=== PATIENT | female | born 1950 | race Caucasian/White ===

== ENCOUNTER → 2018-05-02 | Outpatient (REF) | payer OTHER | LOC: M LAB REF 17:23 | PROVIDERS: ATTEND Internal Medicine Pulmonary Disease | DX: J44.9 Chronic obstructive pulmonary disease, unspecified (principal); R91.8 Other nonspecific abnormal finding of lung field ==

== ENCOUNTER → 2019-05-03 | Outpatient (CLI) | payer OTHER ==
--- NOTE | 2019-05-03 13:30 | REP ---
CT chest without contrast: Low-dose screening exam. History: Nicotine dependence. There are multiple comparison chest CT studies, the most recent of which is from 24 February 2014. The most remote is [address] findings: There are multiple tiny fibrotic appearing nodular opacities in the upper lobes bilaterally which are unchanged from the February 24, 2014 prior study. There is emphysematous change in the upper lobes. There are scattered areas of bronchiectasis. There is some peribronchial wall thickening in a portion of the left upper lobe consistent with bronchitis. Some linear fibrosis is seen in the right lower lobe. There is a somewhat linear area of pleural thickening in the right posterior pleural space at the right lower lobe. This is visible on page 59 through 63 of 99 in series 201 of today's study. This appears to be a new finding. This may be a developing pleural plaque. It measures 3.6 mm in greatest thickness by 8 mm in greatest right to left dimension. There is no new pulmonary parenchymal nodule is appreciated. Impression: Evidence of COPD. Multiple stable tiny fibrotic appearing nodular opacities in the upper lobes. There is evidence of bronchiectasis and bronchitis changes are seen. A linear area of pleural thickening is noted in the right lower lobe which is new from the prior study. Repeat CT study suggested in 6 months. Lung-RADS category 3 findings. Electronically Signed by Edin Lewis MD 05/03/2019 06:42 P
== END ==
LOC: M RAD 09:35
PROVIDERS: ATTEND Internal Medicine Pulmonary Disease
DX: J84.9 Interstitial pulmonary disease, unspecified (principal); R91.8 Other nonspecific abnormal finding of lung field; F17.218 Nicotine dependence, cigarettes, with other nicotine-induced disorders

== ENCOUNTER → 2019-05-07 | Outpatient (REF) | payer OTHER | LOC: M LAB REF 13:49 | PROVIDERS: ATTEND Internal Medicine Pulmonary Disease | DX: J44.9 Chronic obstructive pulmonary disease, unspecified (principal) ==

== ENCOUNTER → 2019-10-28 | Outpatient (CLI) | payer OTHER ==
--- NOTE | 2019-11-26 11:29 | REP ---
NONCONTRAST CHEST CT CLINICAL: Chronic obstructive pulmonary disease for follow up of abnormal findings. TECHNIQUE: Axial noncontrast images from the thoracic inlet to the upper abdomen with coronal and sagittal reformations. COMPARISON: 05/03/2019, 02/24/2014 FINDINGS: Moderate/advanced COPD and emphysematous changes are again noted including bronchiectasis, minimal scattered scarring, and small scattered chronic fibronodular changes which remain stable. No acute consolidation or effusion. No significant nodule or mass lesion. Tracheobronchial tree is relatively patent. Mediastinum demonstrates atherosclerotic changes to the thoracic aorta and coronary arteries. Aneurysmal dilatation to the ascending aorta measuring approximately 3.7 cm is unchanged. Reactive mediastinal lymph nodes remain stable. Musculoskeletal structures without focal osseous abnormality. IMPRESSION: * Moderate/early advanced COPD/emphysematous changes with chronic stable changes. * No acute mediastinal or pleuroparenchymal process. The previously noted small scattered fibronodular changes remain stable. No significant nodular mass or consolidation. * Aneurysmal dilatation to the ascending thoracic aorta unchanged. MTDD
== END ==
LOC: M RAD 09:14
PROVIDERS: ATTEND Internal Medicine Pulmonary Disease
DX: J44.9 Chronic obstructive pulmonary disease, unspecified (principal); I71.2 Thoracic aortic aneurysm, without rupture

== ENCOUNTER → 2019-11-13 | Outpatient (CLI) | payer OTHER ==
--- NOTE | 2019-11-15 07:13 | SLEEPCENT ---
DATE: 11/13/2019 REFERRING PROVIDER: Carrington Rivera There was 7 hours and 33 minutes of data reviewed. There were 320 minutes of sleep identified. Sleep latency was prolonged at 72 minutes. REM latency was normal at 121 minutes. Sleep architecture was fair. There was some minor fragmentation. Overall sleep efficiency was good at 71.4%, and there were three REM cycles noted. The electrocardiogram showed a sinus rhythm with occasional premature ventricular contractions (PVCs). Average heart rate 72 beats per minute . EEG showed reasonably normal waveforms for wake and sleep. There were only 12 respiratory events of 10 seconds in duration or greater for an apnea- hypopnea index within normal limits at 2.3. The events that were seen were primarily hypopneic. Snoring was noted, and respiratory related arousals in total occurred 1.2 times per hour. There was some limb activity noted. Two trains of 30 events were documented. The limb movement arousal index was 6.4. Oxygen saturations remained above 90% for much of the study. There were occasional desaturations, which on closer inspection were felt to be artifactual. IMPRESSION: Normal nocturnal polysomnography with snoring. Edited: les 11/18/2019 1407 MTDD
== END ==
LOC: M SLEEP 20:00
PROVIDERS: ATTEND Internal Medicine Pulmonary Disease
DX: R06.83 Snoring (principal)

== ENCOUNTER 2020-05-22 07:01 | Inpatient (IN) | payer MEDICARE, OTHER ==
[~2020-05-22] VITALS: Ht 149.9 cm; Wt 45.0 kg
[2020-05-22] MEDS ORDERED: STIO1AER INH (07:17)
[2020-05-22] MEDS ORDERED: LOSA25TA14 PO (07:17)
[2020-05-22] MEDS ORDERED: methylPREDNISolone 125MG 2ML VIAL IV ONE (07:25)
[2020-05-22 07:32] LABS: VENOUS BASE EXCESS -2.1 (-2.0-2.0); VENOUS HCO3 23.5 MEQ/L (23.0-27.0); VENOUS O2 SATURATION 87.2 % (60.0-80.0); VENOUS PARTIAL PRESSURE CO2 43.3 mmHg (38.0-50.0); VENOUS PARTIAL PRESSURE O2 52.4 mmHg (30.0-50.0); VENOUS PH 7.353 UNITS (7.330-7.430); VENOUS STANDARD HCO3 22.5 MEQ/L; VENOUS TOTAL CO2 24.9 MEQ/L (24.0-28.0)
[2020-05-22 07:39] LABS: BASO # 0.2 10^3/uL (0.0-0.2); EOS % 8.2 % (0.0-3.0); HEMOGLOBIN 14.6 g/dl (12.0-15.5); LYMPH # 4.6 10^3/uL (1.5-5.0); LYMPH % 39.6 % (24.0-44.0); MEAN CORPUSCULAR HEMOGLOBIN 31.8 pg (27.0-33.0); MEAN CORPUSCULAR HGB CONC 32.4 g/dl (32.0-36.5); MONO # 1.2 10^3/uL (0.0-0.8); NEUTROPHILS # 4.7 10^3/uL (1.5-8.5); NEUTROPHILS % 39.9 % (36.0-66.0); PLATELET COUNT, AUTOMATED 352 10^3/uL (150-450); RED BLOOD COUNT 4.59 10^6/uL (4.00-5.40); WHITE BLOOD COUNT 11.6 10^3/uL (4.0-10.0)
[2020-05-22] MEDS: COMBIVENT RESPIMAT 100-20MCG INHALER 4GM INH SCH ×3 (07:48→08:45)
--- NOTE | 2020-05-22 07:54 | REP ---
INDICATION: DYSPNEA/COUGH. COMPARISON: No comparison chest x-ray. Comparison chest CT study October 28, 2019. TECHNIQUE: Portable upright AP chest radiograph. FINDINGS: The lungs are hyperinflated consistent with COPD. Interstitial markings are slightly prominent. There is a moderate dextroconvex lower thoracic curvature unchanged. EKG monitoring electrodes and oxygen delivery tubing are seen. Heart size is normal and unchanged. No focal infiltrate is seen. There is mild diffuse osteopenia.. IMPRESSION: Hyperinflation consistent with COPD unchanged. No acute infiltrate.. <Electronically signed by Jared Lewis > 05/22/20 [id number]
[2020-05-22 07:58] LABS: ALBUMIN 3.6 GM/DL (3.2-5.2); ALT/SGPT 15 U/L (12-78); BILIRUBIN,DIRECT 0.1 MG/DL (0.0-0.2); BILIRUBIN,TOTAL 0.4 MG/DL (0.2-1.0); BLOOD UREA NITROGEN 15 MG/DL (7-18); CARBON DIOXIDE LEVEL 25 MEQ/L (21-32); CHLORIDE LEVEL 112 MEQ/L (98-107); CREATININE FOR GFR 0.71 MG/DL (0.55-1.30); GLOMERULAR FILTRATION RATE > 60.0 (>39); GLUCOSE, FASTING 91 MG/DL (70-100); NT-PRO BNP 57 PG/ML (<125); POTASSIUM SERUM 4.3 MEQ/L (3.5-5.1); SODIUM LEVEL 144 MEQ/L (136-145); TOTAL PROTEIN 7.3 GM/DL (6.4-8.2)
[2020-05-22] MEDS ORDERED: ISOVUE-370 76% 100ML VIAL As Ordered ONE (09:08)
[2020-05-22] MEDS ORDERED: IBUP200T45 PO (10:01)
[2020-05-22] MEDS ORDERED: ACET-683 PO (10:01)
--- NOTE | 2020-05-22 10:11 | REP ---
INDICATION: CP/sob. COMPARISON: 10/28/2019. TECHNIQUE: CT angiogram chest performed following the intravenous administration of 100 cc of Isovue 370. Sagittal and coronal reconstruction images are performed. FINDINGS: Lungs: Clear, no infiltrate or nodule. There is scattered diffuse fibrotic changes bilaterally. Mediastinum: No adenopathy. Pulmonary arteries: No evidence of pulmonary embolism. Terra: No adenopathy. Axilla: No adenopathy. Pleura: No effusion. Heart: Not enlarged. Thoracic aorta: No aneurysm or dissection. Upper abdominal structures: There is a 2.4 cm cyst of the left kidney. Visualized osseous structures: There are degenerative changes of the spine without compression deformity. IMPRESSION: No CT evidence of pulmonary embolism. No infiltrate seen. <Electronically signed by Mariusz Wells > 05/22/20 1004
[2020-05-22] MEDS ORDERED: ALBUTEROL SULFATE 2.5 MG/0.5 ML INH NEB SOLN NEB PRN (10:30)
[2020-05-22] MEDS ORDERED: NICOTINE 14 MG/24 HR TRANSDERMAL TD ONE (10:30)
--- NOTE | 2020-05-22 11:32 | HPEPDOC ---
[facility] Medical History & Physical Date of Admission May 22, 2020 Date of Service: May 22, 2020 Attending Physician: Ruth England MD History and Physical CHIEF COMPLAINT: increased SOB HISTORY OF PRESENT ILLNESS: Patient is a 70-year-old female with past medical history of COPD, hypertension, history of heart murmur, questionable aneurysm (location not known to patient] disease, tobacco use who presented to [facility] emergency room today with a chief complaint of increased shortness of breath. The patient states she always has baseline shortness of breath with activity; however, over the past several days she's noticed increased rest of breath more with activity, increased wheezing, anterior chest heaviness associated with shortness of breath and worsening nonproductive cough. She does not use home oxygen. She denies fevers, nausea, vomiting, diarrhea, chills, recent illnesses, recent hospitalizations, recent medication changes, productive cough. The patient follows with Dr. Galeana as outpatient with pulmonary. She admits to continuing to smoke 1 pack daily she has for 40 years. Ambulance was called to her home and in route to the emergency room she received several DuoNeb treatments along with steroids. Oxygen saturation at rest in the emergency room was 86% after multiple additional treatments. With 2 L nasal cannula this improved to 9092 percent. In the ER vital signs were stable. WBC 11.6, VBG pH 7.35, chest x-ray negative, CTA of the chest negative, troponin negative, Covid and respiratory panel negative, ECG showed normal sinus rhythm. On exam the patient has decreased breath sounds bilaterally and some mild expiratory wheezing despite treatment. The patient was admitted for further treatment for acute COPD exacerbation. REVIEW OF SYSTEMS: Neg except mentioned above PAST MEDICAL HISTORY: COPD, hypertension, history of heart murmur, questionable aneurysm (location not known to patient] disease, tobacco use PAST SURGICAL HISTORY: Tonsillectomy partial hysterectomy FAMILY HISTORY: Father: alcohol abuse, at unknown age very young Mother: HTN, dementia. at 90 y/o Sister, brother #1, brother #2: alzheimer's disease. . SOCIAL HISTORY: Smoker 1 PPD for 40 years. Denies alcohol or drug use. Lives alone locally, unemployed. 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 HOME MEDICATIONS: Please see below. PHYSICAL EXAMINATION: VS: Please see below, stable CONSTITUTIONAL: No acute distress, resting comfortably, AAO x 3 EYES: PERRLA, EOM intact HENT, MOUTH: Normocephalic, atraumatic, moist mucous membranes, NC in place NECK: SUPPLE, no JVD, no lymphadenopathy, no carotid bruit CV: Regular rate and rhythm, S1S2 normal, no murmurs/rubs/gallops CHEST: Pectus excavatum RESPIRATORY: mild exp wheezing, decreased breath sounds bilaterally , no rales/rhonchi GI: BS positive in 4 quadrants, soft, nontender, nondistended, no rebound or guarding, no organomegaly : Deferred MUSCULOSKELETAL: Normal ROM. No cyanosis, clubbing, swelling, joint deformity, extremity edema INTEGUMENTARY: Intact, no rashes, no lesions, no erythema NEUROLOGIC: Cranial Nerves II-XII are intact, no focal deficits PSYCHIATRIC: Mood and affect are normal LABORATORY DATA: Please see below IMAGING: CXR: Hyperinflation consistent with COPD unchanged. No acute infiltrate. CTA chest: No CT evidence of pulmonary embolism. No infiltrate seen. ASSESSMENT: 70-year-old female with past medical history of COPD, hypertension, history of heart murmur, questionable aneurysm (location not known to patient] disease, tobacco use admitted for further treatment for acute COPD exacerbation. PLAN: Acute COPD exacerbation -Currently saturating well on 2 L NC, hypoxic in mid-80's at rest on RA -VBG pH: wnl -C/w methylprednisolone Q8H, duoneb ATC, albuterol PRN, activity as tolerated -Will watch O2 sat with activity in particular to see if dropping off and on O2. -Does not use home O2 normally HTN -Resume home losartan Tobacco use -Nicotine patch ? aneurysm of chest (patient does not know exact location) -Follows with Dr. Lorenz o/p DVT px -Lovenox DISPOSITION: F/u status daily. Plan is eventually home at discharge when medically improved. Vital Signs Vital Signs Date Time Temp Pulse Resp B/P (MAP) Pulse Ox O2 Delivery O2 Flow Rate FiO2 05/22/20 09:22 163/77 (105) Room Air 05/22/20 09:16 97 90 05/22/20 08:46 2.0 05/22/20 07:07 24 Laboratory Data Labs 24H Laboratory Tests 2 05/22/20 07:22: Immature Granulocyte % (Auto) 0.3, Neutrophils (%) (Auto) 39.9, Lymphocytes (%) (Auto) 39.6, Monocytes (%) (Auto) 10.0H, Eosinophils (%) (Auto) 8.2H, Basophils (%) (Auto) 2.0H, Neutrophils # (Auto) 4.7, Lymphocytes # (Auto) 4.6, Monocytes # (Auto) 1.2H, Eosinophils # (Auto) 1.0H, Basophils # (Auto) 0.2, Nucleated Red Blood Cells % (auto) 0.0, Blood Gas Bicarbonate Standard 22.5, Venous Blood pH 7.353, Venous Blood Partial Pressure CO2 43.3, Venous Blood Partial Pressure O2 52.4H, Venous Blood Total Carbon Dioxide 24.9, Venous Blood HCO3 23.5, Venous Blood Oxygen Saturation 87.2H, Venous Blood Base Excess -2.1L, Anion Gap 7L, Glomerular Filtration Rate > 60.0, Lactic Acid Level 1.0, Calcium Level 9.0, Total Bilirubin 0.4, Direct Bilirubin 0.1, Aspartate Amino Transf (AST/SGOT) 8, Alanine Aminotransferase (ALT/SGPT) 15, Alkaline Phosphatase 65, KR-Qmn-U-Type Natriuretic Peptide 57, Total Protein 7.3, Albumin 3.6, Albumin/Globulin Ratio 1.0L 05/22/20 07:35: POC Troponin I (Misc) 0.00 CBC/BMP Laboratory Tests 05/22/20 07:22 Microbiology Microbiology 05/22/20 Respiratory Virus Panel (PCR) (ANA) - Final, Complete 05/22/20 Blood Culture, Received Pending 05/22/20 Blood Culture, Received Pending Home Medications Scheduled Losartan Potassium (Losartan Potassium) 25 Mg Tablet, 25 MG PO DAILY Tiotropium Br/Olodaterol HCl (Stiolto Respimat Inhal [place]) 4 Gm Mist.inhal, 2 PUFF INH DAILY Scheduled PRN Acetaminophen (Acetaminophen) 500 Mg Tablet, 1,000 MG PO Q6H PRN for BACK PAIN Ibuprofen (Ibu-200) 200 Mg Tablet, 800 MG PO Q6H PRN for BACK PAIN Allergies Coded Allergies: No Known Drug Allergies (Verified Allergy, Unknown, 05/22/20) A-FIB/CHADSVASC A-FIB History Current/History of A-Fib/PAF?: No Current PO Anticoag Therapy: No Age/Risk Factor Scoring CHADSVASC: CHADSVASC Response (Comments) Value Age Risk Factor Age 65-74 years old 1 Gender Risk Factor Female 1 Hx of CHF No 0 Hx of HTN Yes 1 Hx of Stroke/TIA/or VTE No 0 Hx of Diabetes No 0 Hx of Vascular Disease No 0 Total 3 Treatment Treatment ordered: Other Other anticoagulant ordered: enoxaparin Ruth England MD May 22, 2020 11:32
[2020-05-22] MEDS: IPRATROPIUM 0.5MG/ALBUTEROL 2.5MG INH SOL UD 3ML (DUONEB) NEB SCH ×3 (12:00→20:03)
[2020-05-22 13:30] VITALS: BP 140/85
[2020-05-22 14:00] VITALS: BP 140/85
[2020-05-22] MEDS: ENOXAPARIN 40MG/0.4ML SYRINGE (J1650 PER 10MG) SC SCH (14:39)
[2020-05-22] MEDS: LOSARTAN 25 MG TAB PO SCH (14:39)
[2020-05-22] MEDS: methylPREDNISolone 125MG 2ML VIAL IV SCH ×2 (14:40→17:41)
[2020-05-22 22:00] VITALS: BP 142/84
--- NOTE | 2020-05-22 22:08 | ECGEPIP ---
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
[2020-05-23] MEDS: methylPREDNISolone 125MG 2ML VIAL IV SCH ×3 (01:33→18:34)
[2020-05-23 06:00] VITALS: BP 124/76
[2020-05-23 06:07] LABS: HEMATOCRIT 42.4 % (36.0-47.0); HEMOGLOBIN 14.3 g/dl (12.0-15.5); MEAN CORPUSCULAR HEMOGLOBIN 32.6 pg (27.0-33.0); MEAN CORPUSCULAR HGB CONC 33.7 g/dl (32.0-36.5); MEAN CORPUSCULAR VOLUME 96.8 fl (80.0-96.0); PLATELET COUNT, AUTOMATED 342 10^3/uL (150-450); RED BLOOD COUNT 4.38 10^6/uL (4.00-5.40); WHITE BLOOD COUNT 17.3 10^3/uL (4.0-10.0)
[2020-05-23 06:30] LABS: ALBUMIN 3.4 GM/DL (3.2-5.2); ALT/SGPT 14 U/L (12-78); BILIRUBIN,TOTAL 0.3 MG/DL (0.2-1.0); BLOOD UREA NITROGEN 14 MG/DL (7-18); CALCIUM LEVEL 8.7 MG/DL (8.8-10.2); CARBON DIOXIDE LEVEL 22 MEQ/L (21-32); CHLORIDE LEVEL 111 MEQ/L (98-107); CREATININE FOR GFR 0.68 MG/DL (0.55-1.30); GLOMERULAR FILTRATION RATE > 60.0 (>39); GLUCOSE, FASTING 150 MG/DL (70-100); SODIUM LEVEL 140 MEQ/L (136-145); TOTAL PROTEIN 7.5 GM/DL (6.4-8.2)
[2020-05-23] MEDS: IPRATROPIUM 0.5MG/ALBUTEROL 2.5MG INH SOL UD 3ML (DUONEB) NEB SCH ×4 (07:18→20:56)
[2020-05-23 09:00] VITALS: BP 124/78
[2020-05-23] MEDS: ENOXAPARIN 40MG/0.4ML SYRINGE (J1650 PER 10MG) SC SCH (09:03)
[2020-05-23] MEDS: LOSARTAN 25 MG TAB PO SCH (09:07)
[2020-05-23] MEDS: NICOTINE 14 MG/24 HR TRANSDERMAL TD SCH (11:42)
[2020-05-23 14:00] VITALS: BP 120/71
[2020-05-23] MEDS: ACETAMINOPHEN TAB 650MG DOSE (2X325MG) PO PRN (15:18)
--- NOTE | 2020-05-23 19:59 | IPNPDOC ---
Date Seen The patient was seen on 05/23/20. Progress Note SUBJECTIVE: Requiring 2 L NC still today, slightly improved wheezing with coughing. Denies chest pain, fevers, chills, n/v/d. OBJECTIVE: PHYSICAL EXAMINATION: VS: Please see below, stable CONSTITUTIONAL: No acute distress, resting comfortably, AAO x 3 EYES: PERRLA, EOM intact HENT, MOUTH: Normocephalic, atraumatic, moist mucous membranes, NC in place NECK: SUPPLE, no JVD, no lymphadenopathy, no carotid bruit CV: Regular rate and rhythm, S1S2 normal, no murmurs/rubs/gallops CHEST: Pectus excavatum RESPIRATORY: mild exp wheezing, decreased breath sounds bilaterally , no rales/rhonchi GI: BS positive in 4 quadrants, soft, nontender, nondistended, no rebound or guarding, no organomegaly : Deferred MUSCULOSKELETAL: Normal ROM. No cyanosis, clubbing, swelling, joint deformity, extremity edema INTEGUMENTARY: Intact, no rashes, no lesions, no erythema NEUROLOGIC: Cranial Nerves II-XII are intact, no focal deficits PSYCHIATRIC: Mood and affect are normal LABORATORY DATA: Please see below IMAGING: CXR: Hyperinflation consistent with COPD unchanged. No acute infiltrate. CTA chest: No CT evidence of pulmonary embolism. No infiltrate seen. ASSESSMENT: 70-year-old female with past medical history of COPD, hypertension, history of heart murmur, questionable aneurysm (location not known to patient] disease, tobacco use admitted for further treatment for acute COPD exacerbation. PLAN: Acute COPD exacerbation -90% on 2 L NC, continued wheezing, decreased breath sounds. Not on home O2. -C/w methylprednisolone Q8H, duoneb ATC, albuterol PRN, activity as tolerated -Saturated 88-92% with 2 L NC with PT today -Question is whether or not patient will require home O2 with activity. Will walk daily to see if improvement with ambulation O2 sat HTN -C/w losartan Tobacco use -Nicotine patch ? aneurysm of chest (patient does not know exact location) -Follows with Dr. Lorenz o/p DVT px -Lovenox DISPOSITION: F/u status daily. Plan is eventually home at discharge when medically improved. VS, I&O, 24H, Fishbone Vital Signs/I&O Vital Signs Date Time Temp Pulse Resp B/P (MAP) Pulse Ox O2 Delivery O2 Flow Rate FiO2 05/23/20 14:05 92 Nasal Cannula 1.0 05/23/20 14:00 98.4 116 20 120/71 (87) I&O- Last 24 Hours up to 6 AM 05/23/20 05:59 Intake Total 790 ml Output Total 400 ml Balance 390 ml Laboratory Data 24H LABS Laboratory Tests 2 05/23/20 05:47: Nucleated Red Blood Cells % (auto) 0.0, Anion Gap 7L, Glomerular Filtration Rate > 60.0, Calcium Level 8.7L, Total Bilirubin 0.3, Aspartate Amino Transf (AST/SGOT) 6L, Alanine Aminotransferase (ALT/SGPT) 14, Alkaline Phosphatase 62, Total Protein 7.5, Albumin 3.4, Albumin/Globulin Ratio 0.8L CBC/BMP Laboratory Tests 05/23/20 05:47 Microbiology Microbiology 05/22/20 Respiratory Virus Panel (PCR) (ANA) - Final, Complete 05/22/20 Blood Culture - Preliminary, Resulted No growth after 24 hours . All specim... 05/22/20 Blood Culture - Preliminary, Resulted No growth after 24 hours . All specim... Current Medications Current Medications Medications (Trade) Dose Ordered Sig/Bria Route PRN Reason Start Time Stop Time Status Last Admin Dose Admin Acetaminophen (Tylenol Tab) 650 mg Q4H PRN PO PAIN OR FEVER 05/22/20 10:30 05/23/20 15:18 Albuterol Sulfate (Proventil Neb) 2.5 mg Q2HP PRN NEB SOB/WHEEZING 05/22/20 10:30 Albuterol/ Ipratropium (Combivent Respimat 100-20mcg) 2 puff Q20M INH 05/22/20 07:25 05/22/20 08:06 DC 05/22/20 08:45 Albuterol/ Ipratropium (Duoneb (Ipr 0.5mg/Alb 2.5mg)) 3 ml RQID NEB 05/22/20 12:00 05/23/20 15:15 Enoxaparin Sodium (Lovenox) 40 mg DAILY SC 05/22/20 09:00 05/23/20 09:03 Home Med (Med Rec Complete!) ASDIRECTED XX 05/22/20 10:05 05/22/20 10:12 DC Losartan Potassium (Cozaar) 25 mg DAILY PO 05/22/20 09:00 05/23/20 09:07 Methylprednisolone (SOLUmedrol) 60 mg Q8H IV 05/22/20 09:00 05/23/20 18:34 Miscellaneous (Unresolved Clarification Entry) SEE LABEL COMMENTS DAILY XX 05/23/20 09:00 05/23/20 10:36 DC Nicotine (Nicoderm Cq 14mg) 1 patch DAILY TD 05/23/20 09:00 05/23/20 11:42 Allergies Coded Allergies: No Known Drug Allergies (Verified Allergy, Unknown, 05/22/20) Ruth England MD May 23, 2020 19:59
[2020-05-23 22:00] VITALS: BP 123/72
[2020-05-24] MEDS: methylPREDNISolone 125MG 2ML VIAL IV SCH ×2 (00:56→12:20)
[2020-05-24 06:00] VITALS: BP 124/73
[2020-05-24 06:02] LABS: HEMATOCRIT 42.4 % (36.0-47.0); MEAN CORPUSCULAR HEMOGLOBIN 32.6 pg (27.0-33.0); MEAN CORPUSCULAR VOLUME 98.8 fl (80.0-96.0); PLATELET COUNT, AUTOMATED 345 10^3/uL (150-450); RED BLOOD COUNT 4.29 10^6/uL (4.00-5.40); WHITE BLOOD COUNT 20.6 10^3/uL (4.0-10.0)
[2020-05-24 06:37] LABS: ALBUMIN 3.3 GM/DL (3.2-5.2); ALT/SGPT 16 U/L (12-78); BILIRUBIN,TOTAL 0.3 MG/DL (0.2-1.0); BLOOD UREA NITROGEN 19 MG/DL (7-18); CALCIUM LEVEL 8.4 MG/DL (8.8-10.2); CARBON DIOXIDE LEVEL 23 MEQ/L (21-32); CHLORIDE LEVEL 113 MEQ/L (98-107); CREATININE FOR GFR 0.61 MG/DL (0.55-1.30); GLOMERULAR FILTRATION RATE > 60.0 (>39); GLUCOSE, FASTING 135 MG/DL (70-100); POTASSIUM SERUM 4.3 MEQ/L (3.5-5.1); SODIUM LEVEL 141 MEQ/L (136-145); TOTAL PROTEIN 7.4 GM/DL (6.4-8.2)
[2020-05-24] MEDS: IPRATROPIUM 0.5MG/ALBUTEROL 2.5MG INH SOL UD 3ML (DUONEB) NEB SCH ×4 (07:08→19:42)
[2020-05-24] MEDS ORDERED: PRED20TA PO (08:46)
[2020-05-24] MEDS: NICOTINE 14 MG/24 HR TRANSDERMAL TD SCH (09:04)
[2020-05-24] MEDS: ENOXAPARIN 40MG/0.4ML SYRINGE (J1650 PER 10MG) SC SCH (09:05)
[2020-05-24] MEDS: LOSARTAN 25 MG TAB PO SCH (09:08)
[2020-05-24] MEDS ORDERED: predniSONE 20 MG TAB PO ONE (11:00)
[2020-05-24] MEDS ORDERED: methylPREDNISolone 125MG 2ML VIAL IV SCH (13:10)
[2020-05-24 14:00] VITALS: BP 161/83
--- NOTE | 2020-05-24 15:55 | IPNPDOC ---
Date Seen The patient was seen on 05/24/20. Progress Note SUBJECTIVE: Weaned off O2 and saturated well at rest; however, dropped to 86% and needed to be placed back on 2 L NC. Discharge postponed. Improved wheezing and coughing. Denies chest pain, fevers, chills, n/v/d. OBJECTIVE: PHYSICAL EXAMINATION: VS: Please see below, stable CONSTITUTIONAL: No acute distress, resting comfortably, AAO x 3 EYES: PERRLA, EOM intact HENT, MOUTH: Normocephalic, atraumatic, moist mucous membranes, NC in place NECK: SUPPLE, no JVD, no lymphadenopathy, no carotid bruit CV: Regular rate and rhythm, S1S2 normal, no murmurs/rubs/gallops CHEST: Pectus excavatum RESPIRATORY: No wheezing, decreased breath sounds bilaterally. no rales/rhonchi GI: BS positive in 4 quadrants, soft, nontender, nondistended, no rebound or guarding, no organomegaly : Deferred MUSCULOSKELETAL: Normal ROM. No cyanosis, clubbing, swelling, joint deformity, extremity edema INTEGUMENTARY: Intact, no rashes, no lesions, no erythema NEUROLOGIC: Cranial Nerves II-XII are intact, no focal deficits PSYCHIATRIC: Mood and affect are normal LABORATORY DATA: Please see below IMAGING: CXR: Hyperinflation consistent with COPD unchanged. No acute infiltrate. CTA chest: No CT evidence of pulmonary embolism. No infiltrate seen. ASSESSMENT: 70-year-old female with past medical history of COPD, hypertension, history of heart murmur, questionable aneurysm (location not known to patient] disease, tobacco use admitted for further treatment for acute COPD exacerbation. PLAN: Acute COPD exacerbation -Desaturated to 86%, placed back on 2 L NC at rest- improved wheezing, decreased breath sounds. Not on home O2. -C/w methylprednisolone Q12H, duoneb ATC, albuterol PRN, activity as tolerated -Question is whether or not patient will require home O2 with activity. Will w alk daily to see if improvement with ambulation O2 sat -Follows with Dr. Galeana (pulmonary) o/p HTN -C/w losartan Tobacco use -Nicotine patch ? aneurysm of chest (patient does not know exact location) -Follows with Dr. Lorenz o/p DVT px -Lovenox DISPOSITION: F/u status daily. Plan is eventually home at discharge when medically improved. VS, I&O, 24H, Fishbone Vital Signs/I&O Vital Signs Date Time Temp Pulse Resp B/P (MAP) Pulse Ox O2 Delivery O2 Flow Rate FiO2 05/24/20 14:00 98.9 110 20 161/83 (109) 91 Room Air 05/24/20 09:00 I&O- Last 24 Hours up to 6 AM 05/24/20 06:00 Intake Total 1330 ml Output Total 1450 ml Balance -120 ml Laboratory Data 24H LABS Laboratory Tests 2 05/24/20 05:41: Nucleated Red Blood Cells % (auto) 0.0, Anion Gap 5L, Glomerular Filtration Rate > 60.0, Calcium Level 8.4L, Total Bilirubin 0.3, Aspartate Amino Transf (AST/SGOT) 13, Alanine Aminotransferase (ALT/SGPT) 16, Alkaline Phosphatase 59, Total Protein 7.4, Albumin 3.3, Albumin/Globulin Ratio 0.8L CBC/BMP Laboratory Tests 05/24/20 05:41 Microbiology Microbiology 05/22/20 Respiratory Virus Panel (PCR) (ANA) - Final, Complete 05/22/20 Blood Culture - Preliminary, Resulted No Growth after 48 hours. All Specime... 05/22/20 Blood Culture - Preliminary, Resulted No Growth after 48 hours. All Specime... Current Medications Current Medications Medications (Trade) Dose Ordered Sig/Bria Route PRN Reason Start Time Stop Time Status Last Admin Dose Admin Acetaminophen (Tylenol Tab) 650 mg Q4H PRN PO PAIN OR FEVER 05/22/20 10:30 05/23/20 15:18 Albuterol Sulfate (Proventil Neb) 2.5 mg Q2HP PRN NEB SOB/WHEEZING 05/22/20 10:30 Albuterol/ Ipratropium (Combivent Respimat 100-20mcg) 2 puff Q20M INH 05/22/20 07:25 05/22/20 08:06 DC 05/22/20 08:45 Albuterol/ Ipratropium (Duoneb (Ipr 0.5mg/Alb 2.5mg)) 3 ml RQID NEB 05/22/20 12:00 05/24/20 15:19 Enoxaparin Sodium (Lovenox) 40 mg DAILY SC 05/22/20 09:00 05/24/20 09:05 Home Med (Med Rec Complete!) ASDIRECTED XX 05/22/20 10:05 05/22/20 10:12 DC Losartan Potassium (Cozaar) 25 mg DAILY PO 05/22/20 09:00 05/24/20 09:08 Methylprednisolone (SOLUmedrol) 60 mg Q12H IV 05/24/20 13:00 Methylprednisolone (SOLUmedrol) 60 mg Q12H IV 05/24/20 13:10 UNV Methylprednisolone (SOLUmedrol) 60 mg Q8H IV 05/22/20 09:00 05/24/20 08:49 DC 05/24/20 00:56 Miscellaneous (Unresolved Clarification Entry) SEE LABEL COMMENTS DAILY XX 05/23/20 09:00 05/23/20 10:36 DC Nicotine (Nicoderm Cq 14mg) 1 patch DAILY TD 05/23/20 09:00 05/24/20 09:04 Allergies Coded Allergies: No Known Drug Allergies (Verified Allergy, Unknown, 05/22/20) Ruth England MD May 24, 2020 15:55
[2020-05-24] MEDS: ACETAMINOPHEN TAB 650MG DOSE (2X325MG) PO PRN (18:45)
[2020-05-24 22:00] VITALS: BP 126/75
[2020-05-24] MEDS: guaiFENesin ER 600 MG TAB PO SCH (22:24)
[2020-05-25] MEDS: methylPREDNISolone 125MG 2ML VIAL IV SCH ×2 (00:46→12:01)
[2020-05-25 06:00] VITALS: BP 129/67
[2020-05-25 06:16] LABS: HEMATOCRIT 41.2 % (36.0-47.0); HEMOGLOBIN 13.5 g/dl (12.0-15.5); MEAN CORPUSCULAR HEMOGLOBIN 32.2 pg (27.0-33.0); MEAN CORPUSCULAR HGB CONC 32.8 g/dl (32.0-36.5); MEAN CORPUSCULAR VOLUME 98.3 fl (80.0-96.0); PLATELET COUNT, AUTOMATED 327 10^3/uL (150-450); RED BLOOD COUNT 4.19 10^6/uL (4.00-5.40); WHITE BLOOD COUNT 15.6 10^3/uL (4.0-10.0)
[2020-05-25 06:33] LABS: ALT/SGPT 17 U/L (12-78); BILIRUBIN,TOTAL 0.4 MG/DL (0.2-1.0); BLOOD UREA NITROGEN 19 MG/DL (7-18); CALCIUM LEVEL 8.4 MG/DL (8.8-10.2); CARBON DIOXIDE LEVEL 25 MEQ/L (21-32); CHLORIDE LEVEL 110 MEQ/L (98-107); CREATININE FOR GFR 0.61 MG/DL (0.55-1.30); GLOMERULAR FILTRATION RATE > 60.0 (>39); GLUCOSE, FASTING 117 MG/DL (70-100); POTASSIUM SERUM 3.8 MEQ/L (3.5-5.1); SODIUM LEVEL 141 MEQ/L (136-145); TOTAL PROTEIN 6.7 GM/DL (6.4-8.2)
[2020-05-25] MEDS: IPRATROPIUM 0.5MG/ALBUTEROL 2.5MG INH SOL UD 3ML (DUONEB) NEB SCH ×2 (07:09→10:58)
[2020-05-25] MEDS: guaiFENesin ER 600 MG TAB PO SCH (08:34)
[2020-05-25] MEDS: NICOTINE 14 MG/24 HR TRANSDERMAL TD SCH (08:34)
[2020-05-25 08:35] VITALS: BP 147/77
[2020-05-25] MEDS: ENOXAPARIN 40MG/0.4ML SYRINGE (J1650 PER 10MG) SC SCH (08:35)
[2020-05-25] MEDS: LOSARTAN 25 MG TAB PO SCH (08:35)
--- NOTE | 2020-05-25 16:08 | DS.PDOC ---
Discharge Summary General Date of Admission May 22, 2020 at 10:28 Date of Discharge 05/25/20 Attending Physician: Ruth England MD Discharge Summary HISTORY OF PRESENT ILLNESS: Patient is a 70-year-old female with past medical history of COPD, hypertension, history of heart murmur, questionable aneurysm (location not known to patient] disease, tobacco use who presented to [facility] emergency room today with a chief complaint of increased shortness of breath. The patient states she always has baseline shortness of breath with activity; however, over the past several days she's noticed increased rest of breath more with activity, increased wheezing, anterior chest heaviness associated with shortness of breath and worsening nonproductive cough. She does not use home oxygen. She denies fevers, nausea, vomiting, diarrhea, chills, recent illnesses, recent hospitalizations, recent medication changes, productive cough. The patient follows with Dr. Galeana as outpatient with pulmonary. She admits to continuing to smoke 1 pack daily she has for 40 years. Ambulance was called to her home and in route to the emergency room she received several DuoNeb treatments along with steroids. Oxygen saturation at rest in the emergency room was 86% after multiple additional treatments. With 2 L nasal cannula this improved to 9092 percent. In the ER vital signs were stable. WBC 11.6, VBG pH 7.35, chest x-ray negative, CTA of the chest negative, troponin negative, Covid and respiratory panel negative, ECG showed normal sinus rhythm. On exam the patient has decreased breath sounds b ilaterally and some mild expiratory wheezing despite treatment. The patient was admitted for further treatment for acute COPD exacerbation. HOSPITAL COURSE: Patient was treated with ATC and PRN nebulizer treatments, methylprednisolone later tapered down. She desaturated to 87% with walking but rapidly improved after rest, taking deep breaths. It is likely at baseline patient drops into this range, as she says she has to take time to stop often. She also actively still smokes. We discussed with patient option to wait several more days or discharge home. Decision was made to discharge home with prednisone taper x 10 days, home inhalers and nebulizer meds. She is to call pulmonary after discharge and scheduled follow up appointment. If SOB of breath at home worsens, she is advised to be seen again as soon as possible. PAST MEDICAL HISTORY: COPD, hypertension, history of heart murmur, questionable aneurysm (location not known to patient] disease, tobacco use PAST SURGICAL HISTORY: Tonsillectomy partial hysterectomy FAMILY HISTORY: Father: alcohol abuse, at unknown age very young Mother: HTN, dementia. at 90 y/o Sister, brother #1, brother #2: alzheimer's disease. . SOCIAL HISTORY: Smoker 1 PPD for 40 years. Denies alcohol or drug use. Lives alone locally, unemployed. 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 Lorenz DISCHARGE MEDICATIONS: Please see below PHYSICAL EXAMINATION: VS: Please see below, stable CONSTITUTIONAL: No acute distress, resting comfortably, AAO x 3 EYES: PERRLA, EOM intact HENT, MOUTH: Normocephalic, atraumatic, moist mucous membranes NECK: SUPPLE, no JVD, no lymphadenopathy, no carotid bruit CV: Regular rate and rhythm, S1S2 normal, no murmurs/rubs/gallops CHEST: Pectus excavatum RESPIRATORY: No wheezing, decreased breath sounds bilaterally. no rales/rhonchi GI: BS positive in 4 quadrants, soft, nontender, nondistended, no rebound or guarding, no organomegaly : Deferred MUSCULOSKELETAL: Normal ROM. No cyanosis, clubbing, swelling, joint deformity, extremity edema INTEGUMENTARY: Intact, no rashes, no lesions, no erythema NEUROLOGIC: Cranial Nerves II-XII are intact, no focal deficits PSYCHIATRIC: Mood and affect are normal LABORATORY DATA: Please see below IMAGING: CXR: Hyperinflation consistent with COPD unchanged. No acute infiltrate. CTA chest: No CT evidence of pulmonary embolism. No infiltrate seen. ASSESSMENT: 70-year-old female with past medical history of COPD, hypertension, history of heart murmur, questionable aneurysm (location not known to patient] disease, tobacco use admitted for further treatment for acute COPD exacerbation. PLAN: Acute COPD exacerbation -Desaturated to 87% with walking but rapidly improved after rest. -Discussed with patient option to wait several more days or discharge home. It is likely at baseline patient drops into this range, as she says she has to take time to stop often. -Decision was made to discharge home with prednisone taper x 10 days, home inhalers and nebulizer meds. -She is to call pulmonary after discharge and scheduled follow up appointment. -If SOB of breath at home worsens, she is advised to be seen again as soon as possible. HTN -C/w home med Tobacco use -Nicotine patch ? aneurysm of chest (patient does not know exact location) -Follows with Dr. Lorenz o/p DISPOSITION: Discharged home today to f/u with PCP and pulmonary associates. TIME SPENT ON DISCHARGE: 35 minutes. Vital Signs/I&Os Vital Signs Date Time Temp Pulse Resp B/P (MAP) Pulse Ox O2 Delivery O2 Flow Rate FiO2 05/25/20 10:58 16 05/25/20 10:15 108 Nasal Cannula 2.0 05/25/20 10:03 86 05/25/20 08:35 147/77 05/25/20 06:00 97.0 I&O- Last 24 Hours up to 6 AM 05/25/20 06:00 Intake Total 1110 ml Output Total 1450 ml Balance -340 ml Laboratory Data Labs 24H Laboratory Tests 2 05/25/20 05:20: Nucleated Red Blood Cells % (auto) 0.0, Anion Gap 6L, Glomerular Filtration Rate > 60.0, Calcium Level 8.4L, Total Bilirubin 0.4, Aspartate Amino Transf (AST/SGOT) 18, Alanine Aminotransferase (ALT/SGPT) 17, Alkaline Phosphatase 58, Total Protein 6.7, Albumin 3.0L, Albumin/Globulin Ratio 0.8L CBC/BMP Laboratory Tests 05/25/20 05:20 Microbiology Microbiology 05/22/20 Respiratory Virus Panel (PCR) (ANA) - Final, Complete 05/22/20 Blood Culture - Preliminary, Resulted No Growth after 72 hours. All specime... 05/22/20 Blood Culture - Preliminary, Resulted No Growth after 72 hours. All specime... Discharge Medications Scheduled Losartan Potassium (Losartan Potassium) 25 Mg Tablet, 25 MG PO DAILY, (Reported) Prednisone (Prednisone) 20 Mg Tablet, 60 MG PO DAILY Prednisone taper over 10 days: 60 mg Po x 4 days, 40 mg PO x 4 days, 20 mg PO x 2 days Tiotropium Br/Olodaterol HCl (Stiolto Respimat Inhal [place]) 4 Gm Mist.inhal, 2 PUFF INH DAILY, (Reported) Scheduled PRN Acetaminophen (Acetaminophen) 500 Mg Tablet, 1,000 MG PO Q6H PRN for BACK PAIN, (Reported) Ibuprofen (Ibu-200) 200 Mg Tablet, 800 MG PO Q6H PRN for BACK PAIN, (Reported) Allergies Coded Allergies: No Known Drug Allergies (Verified Allergy, Unknown, 05/22/20) Ruth England MD May 25, 2020 16:08
== END 2020-05-25 13:33 | disposition home or self-care (01) | DRG 192 ==
LOC: M ED 07:01 → M ED INP 10:28 → ENRESERV 12:02 → M MSPAV 13:49
PROVIDERS: ADMIT Internal Medicine; ATTEND Internal Medicine
DX: J44.1 Chronic obstructive pulmonary disease with (acute) exacerbation (principal); I10 Essential (primary) hypertension; F17.210 Nicotine dependence, cigarettes, uncomplicated; Z90.79 Acquired absence of other genital organ(s); I72.9 Aneurysm of unspecified site; Z79.899 Other long term (current) drug therapy; Z86.79 Personal history of other diseases of the circulatory system

== ENCOUNTER 2020-07-21 09:21 | Emergency (ER) | payer OTHER, MEDICARE ==
[~2020-07-21] VITALS: Ht 152.4 cm; Wt 47.7 kg
[~2020-07-21 09:21] MED LIST: ACET-683 PO; IBUP200T45 PO; LOSA25TA14 PO; PRED20TA PO; STIO1AER INH
[2020-07-21] MEDS ORDERED: PROAAER10 INH (09:52)
[2020-07-21] MEDS ORDERED: NICO14DI6 TOP (09:52)
[2020-07-21] MEDS ORDERED: ALBU83IN INH (09:52)
[2020-07-21] MEDS ORDERED: BUDE10.7 INH (09:52)
[2020-07-21 09:56] LABS: BASO # 0.2 10^3/uL (0.0-0.2); BASO % 1.6 % (0.0-1.0); EOS # 0.6 10^3/uL (0.0-0.5); EOS % 5.4 % (0.0-3.0); HEMATOCRIT 45.2 % (36.0-47.0); HEMOGLOBIN 14.7 g/dl (12.0-15.5); LYMPH # 2.8 10^3/uL (1.5-5.0); LYMPH % 24.6 % (24.0-44.0); MEAN CORPUSCULAR HEMOGLOBIN 31.5 pg (27.0-33.0); MEAN CORPUSCULAR HGB CONC 32.5 g/dl (32.0-36.5); MONO # 1.3 10^3/uL (0.0-0.8); NEUTROPHILS # 6.6 10^3/uL (1.5-8.5); NEUTROPHILS % 57.1 % (36.0-66.0); PLATELET COUNT, AUTOMATED 334 10^3/uL (150-450); RED BLOOD COUNT 4.66 10^6/uL (4.00-5.40); WHITE BLOOD COUNT 11.5 10^3/uL (4.0-10.0)
[2020-07-21 10:23] LABS: BLOOD UREA NITROGEN 11 MG/DL (7-18); CALCIUM LEVEL 8.9 MG/DL (8.8-10.2); CARBON DIOXIDE LEVEL 23 MEQ/L (21-32); CHLORIDE LEVEL 113 MEQ/L (98-107); CREATININE FOR GFR 0.61 MG/DL (0.55-1.30); GLOMERULAR FILTRATION RATE > 60.0 (>39); GLUCOSE, FASTING 92 MG/DL (70-100); POTASSIUM SERUM 4.2 MEQ/L (3.5-5.1); SODIUM LEVEL 143 MEQ/L (136-145)
--- NOTE | 2020-07-21 10:27 | REP ---
INDICATION: DYSPNEA/COUGH COMPARISON: 05/22/2020 TECHNIQUE: Portable AP view of the chest FINDINGS: The mediastinum and cardiac silhouette are stable and within normal limits for portable technique. The lung mercado demonstrate chronic appearing changes with suspected superimposed left lower lobe atelectasis. No effusion. No pneumothorax. Skeletal structures intact.. IMPRESSION: Chronic changes with superimposed left lower lobe atelectasis. <Electronically signed by Donal Tello > 07/21/20 1020
[2020-07-21 10:28] LABS: CK-MB VALUE MASS < 1.0 NG/ML (<3.6); CPK CREATINE PHOSPHOKINASE 94 U/L (26-192); MB/CK RELATIVE INDEX 1.06 (< OR =4); NT-PRO BNP 75 PG/ML (<125); TROPONIN I < 0.02 NG/ML (< 0.10)
[2020-07-21] MEDS ORDERED: AZIT500T5 PO (12:47)
[2020-07-21] MEDS ORDERED: PRED10TA2 PO (12:47)
[2020-07-21 13:48] VITALS: BP 150/88
--- NOTE | 2020-07-21 21:35 | ECGEPIP ---
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
== END 2020-07-21 13:55 | disposition home or self-care (01) ==
LOC: EDBD 09:21 → M ED 09:21
DX: J44.1 Chronic obstructive pulmonary disease with (acute) exacerbation (principal); I10 Essential (primary) hypertension; F17.200 Nicotine dependence, unspecified, uncomplicated

== ENCOUNTER 2020-09-12 07:20 | Emergency (ER) | payer OTHER ==
[~2020-09-12] VITALS: Ht 149.9 cm; Wt 46.8 kg
[~2020-09-12 07:20] MED LIST changes: +ALBU83IN INH; +AZIT500T5 PO; +BUDE10.7 INH; +NICO14DI6 TOP; +PRED10TA2 PO; +PROAAER10 INH
[2020-09-12 07:53] LABS: BASO # 0.2 10^3/uL (0.0-0.2); BASO % 1.5 % (0.0-1.0); EOS # 0.7 10^3/uL (0.0-0.5); EOS % 5.9 % (0.0-3.0); HEMATOCRIT 44.7 % (36.0-47.0); HEMOGLOBIN 14.6 g/dl (12.0-15.5); LYMPH # 3.1 10^3/uL (1.5-5.0); LYMPH % 24.9 % (24.0-44.0); MEAN CORPUSCULAR HEMOGLOBIN 31.8 pg (27.0-33.0); MEAN CORPUSCULAR HGB CONC 32.7 g/dl (32.0-36.5); MEAN CORPUSCULAR VOLUME 97.4 fl (80.0-96.0); MONO % 7.8 % (2.0-8.0); NEUTROPHILS # 7.3 10^3/uL (1.5-8.5); NEUTROPHILS % 59.3 % (36.0-66.0); PLATELET COUNT, AUTOMATED 339 10^3/uL (150-450); RED BLOOD COUNT 4.59 10^6/uL (4.00-5.40); WHITE BLOOD COUNT 12.4 10^3/uL (4.0-10.0)
[2020-09-12 08:20] LABS: ALBUMIN 3.3 GM/DL (3.2-5.2); ALT/SGPT 14 U/L (12-78); BILIRUBIN,DIRECT < 0.1 MG/DL (0.0-0.2); BILIRUBIN,TOTAL 0.4 MG/DL (0.2-1.0); BLOOD UREA NITROGEN 7 MG/DL (7-18); CALCIUM LEVEL 8.8 MG/DL (8.8-10.2); CARBON DIOXIDE LEVEL 24 MEQ/L (21-32); CHLORIDE LEVEL 114 MEQ/L (98-107); CK-MB VALUE MASS 1.1 NG/ML (<3.6); CPK CREATINE PHOSPHOKINASE 68 U/L (26-192); CREATININE FOR GFR 0.63 MG/DL (0.55-1.30); GLOMERULAR FILTRATION RATE > 60.0 (>39); GLUCOSE, FASTING 92 MG/DL (70-100); MB/CK RELATIVE INDEX 1.62 (< OR =4); SODIUM LEVEL 145 MEQ/L (136-145); TROPONIN I < 0.02 NG/ML (< 0.10)
--- NOTE | 2020-09-12 08:28 | REP ---
INDICATION: DYSPNEA/COUGH. COMPARISON: AP chest 07/21/2020, CT angio chest 05/22/2020 TECHNIQUE: AP portable FINDINGS: Lungs are hyperinflated with flattened diaphragms. There is underlying COPD and some linear fibrotic changes in the bases. Diffuse scattered fibrotic changes are seen with no gross effusion, dense consolidation or parenchymal mass. Heart is borderline enlarged. There is left ventricular configuration. No carrington edema. The aorta is calcified tortuous but without aneurysm the airway is intact. No widening of the mediastinum. Hilar contours are unchanged. There is a dextro rotatory scoliosis of the thoracic spine. The bones are demineralized. IMPRESSION: 1. COPD with pulmonary fibrotic changes in the bases and elsewhere but no dense consolidation, pleural effusion or gross mass. 2. Left ventricular configuration of the heart which is mildly prominent. No definite pulmonary edema. <Electronically signed by Chema Azul > 09/12/20 0952
[2020-09-12 08:45] VITALS: BP 138/71
[2020-09-12] MEDS: COMBIVENT RESPIMAT 100-20MCG INHALER 4GM INH SCH ×3 (08:45→09:10)
[2020-09-12 08:59] LABS: NT-PRO BNP 81 PG/ML (<125)
[2020-09-12 09:37] LABS: RSV AMPLIFICATION NEGATIVE (NEGATIVE)
[2020-09-12] MEDS ORDERED: LevoFLOXacin 750 MG TABLET PO ONE (10:30)
[2020-09-12] MEDS ORDERED: LEVO750T13 PO (10:31)
[2020-09-12] MEDS ORDERED: PRED20TA PO (10:31)
--- NOTE | 2020-09-12 11:00 | ECGEPIP ---
[facility] - ED Test Date: 2020-09-12 Pat Name: VALERIE ALFARO Department: Room: - Gender: Female Senior Clinical Data Manager: : 1950 Requested By: Sb Colindres Order Number: [id number] Reading MD: Iris Earl Measurements Intervals [place] Rate: 79 P: 65 IL: 138 QRS: 2 QRSD: 66 T: 59 QT: 392 QTc: 449 Interpretive Statements Normal sinus rhythm Low voltage QRS decreased rate 07/21/20 Electronically Signed on 09-12-2020 11:00:39 EDT by Iris Earl
== END 2020-09-12 11:42 | disposition home or self-care (01) ==
LOC: M ED 07:20
DX: J44.0 Chronic obstructive pulmonary disease with (acute) lower respiratory infection (principal); I10 Essential (primary) hypertension; Z79.899 Other long term (current) drug therapy; F17.210 Nicotine dependence, cigarettes, uncomplicated

== ENCOUNTER → 2020-09-16 | Outpatient (CLI) | payer OTHER ==
[~2020-09-16] MED LIST changes: +LEVO750T13 PO
--- NOTE | 2020-09-16 10:36 | REP ---
INDICATION: ABN FINDINGS OF LUNG FIELD. COMPARISON: Comparison is made with multiple prior chest CT studies, the most recent which is from May 22, 2020 and the most remote of which is from February 24, 2014.. TECHNIQUE: Helical scanning is acquired. 3 mm axial images are generated. Coronal and sagittal MPR and coronal MIP images are generated. FINDINGS: Digital preliminary banking representative radiograph demonstrates hyperinflation and a dextroconvex lower thoracic scoliotic curve. There is a levoconvex lumbar curve. There is no evidence of pleural or pericardial effusion. Extensive emphysematous changes are again noted throughout the upper lobes. There is linear density in the left base consistent with discoid atelectasis. This is more prominent than on the prior study. There is linear fibrosis in the right lower lobe and in the lingula anteriorly unchanged. No pulmonary mass lesion or infiltrate is appreciated. Scattered fibro nodular changes are again seen in the upper lobes unchanged from prior study. No new pulmonary nodule is appreciated. There is evidence of mild bronchiectasis unchanged. No hilar or mediastinal mass or adenopathy is observed. There is some vascular calcification. No pleural or pericardial effusion is seen. A left renal cyst is again noted measuring 2.6 cm in greatest diameter. The visualized upper abdominal structures are otherwise unremarkable. The ascending aorta is somewhat dilated measuring 3.96 cm in AP dimension. This is unchanged from the May 03, 2019 study. By [place] measurement on February 24, 2014, the ascending aorta measures 3.4 cm at the level of the right main pulmonary artery. No bony destructive lesion is seen. IMPRESSION: Hyperinflation, emphysematous changes, mild bronchiectasis changes stable since prior study. Linear platelike atelectasis left base on today's CT study. Stable ascending aortic root dilation, 3.96 cm. No significant pulmonary nodule is appreciated. <Electronically signed by Jared Lewis > 09/16/20 0945
== END ==
LOC: M RAD 09:20
PROVIDERS: ATTEND Internal Medicine Pulmonary Disease
DX: R91.8 Other nonspecific abnormal finding of lung field (principal)

== ENCOUNTER 2020-09-28 05:22 | Emergency (ER) | payer OTHER, MEDICARE ==
[~2020-09-28] VITALS: Ht 152.4 cm; Wt 46.4 kg
[2020-09-28 06:06] LABS: BASO # 0.2 10^3/uL (0.0-0.2); BASO % 1.1 % (0.0-1.0); EOS # 0.8 10^3/uL (0.0-0.5); EOS % 5.3 % (0.0-3.0); HEMATOCRIT 44.1 % (36.0-47.0); HEMOGLOBIN 14.3 g/dl (12.0-15.5); MEAN CORPUSCULAR HEMOGLOBIN 31.8 pg (27.0-33.0); MEAN CORPUSCULAR HGB CONC 32.4 g/dl (32.0-36.5); MONO # 1.2 10^3/uL (0.0-0.8); MONO % 8.4 % (2.0-8.0); NEUTROPHILS # 9.1 10^3/uL (1.5-8.5); NEUTROPHILS % 63.8 % (36.0-66.0); PLATELET COUNT, AUTOMATED 364 10^3/uL (150-450); WHITE BLOOD COUNT 14.2 10^3/uL (4.0-10.0)
[2020-09-28 06:31] LABS: ALBUMIN 3.5 GM/DL (3.2-5.2); ALT/SGPT 16 U/L (12-78); BILIRUBIN,DIRECT 0.1 MG/DL (0.0-0.2); BILIRUBIN,TOTAL 0.5 MG/DL (0.2-1.0); BLOOD UREA NITROGEN 7 MG/DL (7-18); CALCIUM LEVEL 8.8 MG/DL (8.8-10.2); CARBON DIOXIDE LEVEL 24 MEQ/L (21-32); CHLORIDE LEVEL 110 MEQ/L (98-107); CK-MB VALUE MASS 1.4 NG/ML (<3.6); CPK CREATINE PHOSPHOKINASE 85 U/L (26-192); CREATININE FOR GFR 0.61 MG/DL (0.55-1.30); GLOMERULAR FILTRATION RATE > 60.0 (>39); GLUCOSE, FASTING 108 MG/DL (70-100); MB/CK RELATIVE INDEX 1.65 (< OR =4); NT-PRO BNP 58 PG/ML (<125); POTASSIUM SERUM 4.2 MEQ/L (3.5-5.1); SODIUM LEVEL 141 MEQ/L (136-145); TROPONIN I < 0.02 NG/ML (< 0.10)
[2020-09-28] MEDS ORDERED: methylPREDNISolone 125MG 2ML VIAL IV ONE (06:55)
[2020-09-28] MEDS ORDERED: NS 1,000 ML IV ONE (06:55)
[2020-09-28] MEDS ORDERED: ALBUTEROL 90 MCG/ACT 8GM HFA INHALER INH ONE (07:00)
--- NOTE | 2020-09-28 07:50 | REPVR ---
PROCEDURE INFORMATION: Exam: XR Chest Exam date and time: 09/28/2020 6:03 AM Age: 70 years old Clinical indication: Cough and dyspnea; Additional info: Dyspnea/cough TECHNIQUE: Imaging protocol: XR of the chest. Views: 1 view. COMPARISON: CT Chest without contrast 09/16/2020 9:32 AM FINDINGS: Lungs: There is hyperinflation consistent with COPD. There is some left basilar atelectasis. Pleural spaces: No pleural effusion. No pneumothorax. Heart/Mediastinum: No cardiomegaly. Vasculature: The aorta is tortuous. Bones/joints: There is a dextroscoliosis at the thoracolumbar junction. IMPRESSION: 1. Hyperinflation consistent with COPD. 2. There is no evidence of active pulmonary disease. Electronically signed by: Owen Payton On 09/28/2020 07:49:43 AM
[2020-09-28] MEDS ORDERED: LEVO750T14 PO (08:53)
[2020-09-28] MEDS ORDERED: PRED20TA PO (08:53)
[2020-09-28 09:15] VITALS: BP 120/63
--- NOTE | 2020-09-28 19:53 | ECGEPIP ---
[facility] - ED Test Date: 2020-09-28 Pat Name: VALERIE ALFARO Department: Room: - Gender: Female Shoe Stitcher Odd: kevin : 1950 Requested By: CHRISTIANO Lima Order Number: [id number] Reading MD: Iris Earl Measurements Intervals [place] Rate: 83 P: 54 ME: 140 QRS: -4 QRSD: 66 T: 61 QT: 380 QTc: 446 Interpretive Statements Normal sinus rhythm low voltage limb similar 09/12/20 Electronically Signed on 09-28-2020 19:53:26 EDT by Iris Earl
== END 2020-09-28 09:21 | disposition home or self-care (01) ==
LOC: M ED 05:22
DX: I10 Essential (primary) hypertension (principal); J44.0 Chronic obstructive pulmonary disease with (acute) lower respiratory infection; Z87.891 Personal history of nicotine dependence; Z99.81 Dependence on supplemental oxygen; Z79.899 Other long term (current) drug therapy
CPT/HCPCS: 71045; 80048; 80076; 82550; 82553; 83605; 83880; 84484; 85025; 93005; 93041; 94760; 96361; 96374; 99285; J2930

== ENCOUNTER 2020-10-23 06:52 | Emergency (ER) | payer OTHER, MEDICARE ==
[~2020-10-23] VITALS: Ht 152.4 cm; Wt 46.4 kg
[~2020-10-23 06:52] MED LIST changes: +LEVO750T14 PO
[2020-10-23] MEDS ORDERED: AZIT500T5 PO (07:10)
[2020-10-23] MEDS ORDERED: STIO1AER IN (07:10)
[2020-10-23] MEDS ORDERED: methylPREDNISolone 125MG 2ML VIAL IV ONE (07:15)
[2020-10-23] MEDS: COMBIVENT RESPIMAT 100-20MCG INHALER 4GM INH SCH ×3 (07:43→08:15)
--- NOTE | 2020-10-23 08:08 | REP ---
INDICATION: DYSPNEA/COUGH. COMPARISON: Comparison chest x-ray September 28, 2020. TECHNIQUE: Portable upright AP chest radiograph. FINDINGS: The lungs are hyperinflated. There is a linear density in the left base consistent with linear fibrosis. Mild interstitial fibrosis is seen as well. There is cardiomegaly unchanged. Oxygen delivery tubing and EKG monitoring electrodes are seen. There is a dextroconvex curvature in the thoracic spine. IMPRESSION: Linear fibrosis and interstitial fibrosis pattern. No acute infiltrate. Mild cardiomegaly. Scoliosis and hyperinflation. <Electronically signed by Jared Lewis > 10/23/20 [id number]
[2020-10-23 08:24] LABS: BASO # 0.1 10^3/uL (0.0-0.2); BASO % 1.2 % (0.0-1.0); EOS # 0.6 10^3/uL (0.0-0.5); EOS % 6.1 % (0.0-3.0); HEMATOCRIT 44.7 % (36.0-47.0); HEMOGLOBIN 15.1 g/dl (12.0-15.5); LYMPH # 2.3 10^3/uL (1.5-5.0); LYMPH % 25.3 % (24.0-44.0); MEAN CORPUSCULAR HEMOGLOBIN 32.6 pg (27.0-33.0); MEAN CORPUSCULAR HGB CONC 33.8 g/dl (32.0-36.5); MEAN CORPUSCULAR VOLUME 96.5 fl (80.0-96.0); MONO # 0.8 10^3/uL (0.0-0.8); MONO % 8.8 % (2.0-8.0); NEUTROPHILS # 5.4 10^3/uL (1.5-8.5); NEUTROPHILS % 58.3 % (36.0-66.0); PLATELET COUNT, AUTOMATED 318 10^3/uL (150-450); RED BLOOD COUNT 4.63 10^6/uL (4.00-5.40); VENOUS BASE EXCESS -1.7 (-2.0-2.0); VENOUS HCO3 24.6 MEQ/L (23.0-27.0); VENOUS O2 SATURATION 68.9 % (60.0-80.0); VENOUS PARTIAL PRESSURE CO2 47.2 mmHg (38.0-50.0); VENOUS PARTIAL PRESSURE O2 36.7 mmHg (30.0-50.0); VENOUS PH 7.335 UNITS (7.330-7.430); VENOUS STANDARD HCO3 22.3 MEQ/L; VENOUS TOTAL CO2 26.1 MEQ/L (24.0-28.0); WHITE BLOOD COUNT 9.2 10^3/uL (4.0-10.0)
[2020-10-23 08:58] LABS: ALBUMIN 3.3 GM/DL (3.2-5.2); BILIRUBIN,DIRECT 0.1 MG/DL (0.0-0.2); BILIRUBIN,TOTAL 0.7 MG/DL (0.2-1.0); THYROID STIMULATING HORMONE 0.982 uIU/ML (0.358-3.740); THYROXINE (T4) 11.1 UG/DL (4.5-12.0); TOTAL PROTEIN 6.9 GM/DL (6.4-8.2)
[2020-10-23] MEDS ORDERED: PRED20TA PO (10:59)
[2020-10-23 11:03] VITALS: BP 163/78
--- NOTE | 2020-10-23 21:21 | ECGEPIP ---
[facility] - ED Test Date: 2020-10-23 Pat Name: VALERIE ALFARO Department: Room: - Gender: Female Carpenter Packing: MICAELA : 1950 Requested By: Irsi Earl Order Number: [id number] Reading MD: Iris Earl Measurements Intervals [place] Rate: 83 P: 41 PA: 122 QRS: -5 QRSD: 66 T: 48 QT: 372 QTc: 437 Interpretive Statements Normal sinus rhythm Cannot rule out Inferior infarct , age undetermined similar 09/28/20 Electronically Signed on 10-23-2020 21:21:20 EDT by Iris Earl
--- NOTE | 2020-10-28 11:30 | ED PDOC ---
Post-Departure Follow-Up radiology report faxed to Iris Burrell MD Oct 28, 2020 11:30
== END 2020-10-23 11:28 | disposition home or self-care (01) ==
LOC: M ED 06:52
DX: J44.1 Chronic obstructive pulmonary disease with (acute) exacerbation (principal); B97.4 Respiratory syncytial virus as the cause of diseases classified elsewhere; I51.7 Cardiomegaly; Z87.891 Personal history of nicotine dependence; Z79.51 Long term (current) use of inhaled steroids; Z79.899 Other long term (current) drug therapy
CPT/HCPCS: 71045; 80076; 82803; 83605; 83880; 84436; 84443; 84484; 85025; 87040; 87798; 93005; 93041; 94640; 94760; 96374; 99285; J2930

== ENCOUNTER 2021-02-06 05:00 | Emergency (ER) | payer OTHER, MEDICARE ==
[~2021-02-06] VITALS: Ht 149.9 cm; Wt 44.1 kg
[~2021-02-06 05:00] MED LIST changes: +LOSA25TA13 PO; -LOSA25TA14 PO; +STIO1AER IN
[2021-02-06] MEDS ORDERED: COMBIVENT RESPIMAT 100-20MCG INHALER 4GM INH SCH (05:35)
[2021-02-06 05:43] LABS: BASO # 0.2 10^3/uL (0.0-0.2); BASO % 1.8 % (0.0-1.0); EOS # 0.9 10^3/uL (0.0-0.5); EOS % 8.1 % (0.0-3.0); HEMATOCRIT 46.4 % (36.0-47.0); HEMOGLOBIN 15.3 g/dl (12.0-15.5); LYMPH # 3.3 10^3/uL (1.5-5.0); LYMPH % 31.3 % (24.0-44.0); MEAN CORPUSCULAR HEMOGLOBIN 32.6 pg (27.0-33.0); MEAN CORPUSCULAR VOLUME 98.9 fl (80.0-96.0); MONO # 1.3 10^3/uL (0.0-0.8); MONO % 11.7 % (2.0-8.0); PLATELET COUNT, AUTOMATED 342 10^3/uL (150-450); RED BLOOD COUNT 4.69 10^6/uL (4.00-5.40); WHITE BLOOD COUNT 10.7 10^3/uL (4.0-10.0)
[2021-02-06 06:05] LABS: ALBUMIN 3.5 GM/DL (3.2-5.2); ALT/SGPT 18 U/L (12-78); BILIRUBIN,DIRECT 0.1 MG/DL (0.0-0.2); BILIRUBIN,TOTAL 0.4 MG/DL (0.2-1.0); BLOOD UREA NITROGEN 9 MG/DL (7-18); CALCIUM LEVEL 8.7 MG/DL (8.8-10.2); CARBON DIOXIDE LEVEL 25 MEQ/L (21-32); CHLORIDE LEVEL 115 MEQ/L (98-107); CK-MB VALUE MASS 1.8 NG/ML (<3.6); CREATININE FOR GFR 0.75 MG/DL (0.55-1.30); GLOMERULAR FILTRATION RATE > 60.0 (>39); GLUCOSE, FASTING 103 MG/DL (70-100); MB/CK RELATIVE INDEX 2.77 (< OR =4); POTASSIUM SERUM 4.2 MEQ/L (3.5-5.1); SODIUM LEVEL 144 MEQ/L (136-145); TOTAL PROTEIN 7.1 GM/DL (6.4-8.2)
[2021-02-06 06:45] VITALS: BP 137/82
[2021-02-06] MEDS ORDERED: PRED20TA PO (06:59)
== END 2021-02-06 07:45 | disposition home or self-care (01) ==
LOC: M ED 05:00
DX: J44.1 Chronic obstructive pulmonary disease with (acute) exacerbation (principal); I10 Essential (primary) hypertension; Z99.81 Dependence on supplemental oxygen; Z79.899 Other long term (current) drug therapy; F17.210 Nicotine dependence, cigarettes, uncomplicated

== ENCOUNTER 2021-04-05 06:47 | Emergency (ER) | payer OTHER, MEDICARE ==
[~2021-04-05] VITALS: Ht 160 cm; Wt 45.0 kg
[2021-04-05] MEDS ORDERED: IPRATROPIUM 0.5MG/ALBUTEROL 2.5MG INH SOL UD 3ML (DUONEB) NEB ONE (07:00)
[2021-04-05] MEDS ORDERED: dexameTHASONE 20MG/5ML VIAL (J1100 PER 1MG) IV ONE (07:15)
[2021-04-05 07:23] LABS: BASO # 0.2 10^3/uL (0.0-0.2); EOS % 10.4 % (0.0-3.0); HEMATOCRIT 47.1 % (36.0-47.0); HEMOGLOBIN 15.6 g/dl (12.0-15.5); LYMPH # 4.1 10^3/uL (1.5-5.0); LYMPH % 41.2 % (24.0-44.0); MEAN CORPUSCULAR HEMOGLOBIN 32.2 pg (27.0-33.0); MEAN CORPUSCULAR HGB CONC 33.1 g/dl (32.0-36.5); MEAN CORPUSCULAR VOLUME 97.3 fl (80.0-96.0); MONO # 1.2 10^3/uL (0.0-0.8); MONO % 11.8 % (2.0-8.0); NEUTROPHILS # 3.4 10^3/uL (1.5-8.5); NEUTROPHILS % 34.4 % (36.0-66.0); PLATELET COUNT, AUTOMATED 361 10^3/uL (150-450); RED BLOOD COUNT 4.84 10^6/uL (4.00-5.40)
[2021-04-05] MEDS ORDERED: IPRATROPIUM 0.02% SOLN 0.5MG 2.5ML NEB INH ONE (07:40)
[2021-04-05] MEDS ORDERED: ALBUTEROL SULFATE 2.5 MG/0.5 ML INH NEB SOLN INH ONE (07:40)
[2021-04-05 07:43] LABS: ALBUMIN 3.5 GM/DL (3.2-5.2); ALT/SGPT 14 U/L (12-78); BILIRUBIN,DIRECT 0.1 MG/DL (0.0-0.2); BILIRUBIN,TOTAL 0.6 MG/DL (0.2-1.0); BLOOD UREA NITROGEN 12 MG/DL (7-18); CARBON DIOXIDE LEVEL 28 MEQ/L (21-32); CHLORIDE LEVEL 110 MEQ/L (98-107); CREATININE FOR GFR 0.86 MG/DL (0.55-1.30); GLOMERULAR FILTRATION RATE > 60.0 (>39); GLUCOSE, FASTING 91 MG/DL (70-100); POTASSIUM SERUM 4.1 MEQ/L (3.5-5.1); SODIUM LEVEL 145 MEQ/L (136-145); TOTAL PROTEIN 7.1 GM/DL (6.4-8.2)
[2021-04-05 08:09] LABS: VENOUS BASE EXCESS -1.4 (-2.0-2.0); VENOUS HCO3 25.5 MEQ/L (23.0-27.0); VENOUS PARTIAL PRESSURE CO2 50.7 mmHg (38.0-50.0); VENOUS PH 7.319 UNITS (7.330-7.430); VENOUS STANDARD HCO3 22.4 MEQ/L
[2021-04-05 10:08] LABS: RSV AMPLIFICATION NEGATIVE (NEGATIVE)
[2021-04-05] MEDS ORDERED: PRED10TA2 PO (11:26)
[2021-04-05 11:47] VITALS: BP 125/74
== END 2021-04-05 12:04 | disposition home or self-care (01) ==
LOC: M ED 06:47
DX: J44.1 Chronic obstructive pulmonary disease with (acute) exacerbation (principal); I10 Essential (primary) hypertension; Z99.81 Dependence on supplemental oxygen; Z79.899 Other long term (current) drug therapy; F17.210 Nicotine dependence, cigarettes, uncomplicated
CPT/HCPCS: 71045; 80048; 80076; 82803; 83605; 84443; 84484; 85025; 87631; 93005; 93041; 94640; 94760; 96374; 99285; J1100

== ENCOUNTER 2021-05-02 07:28 | Emergency (ER) | payer OTHER, MEDICARE ==
[~2021-05-02] VITALS: Ht 149.9 cm; Wt 45.9 kg
[2021-05-02] MEDS: COMBIVENT RESPIMAT 100-20MCG INHALER 4GM INH SCH ×3 (08:06→08:33)
[2021-05-02 08:11] LABS: VENOUS BASE EXCESS -2.4 (-2.0-2.0); VENOUS HCO3 24.3 MEQ/L (23.0-27.0); VENOUS O2 SATURATION 54.4 % (60.0-80.0); VENOUS PARTIAL PRESSURE O2 28.6 mmHg (30.0-50.0); VENOUS PH 7.313 UNITS (7.330-7.430); VENOUS STANDARD HCO3 21.4 MEQ/L; VENOUS TOTAL CO2 25.8 MEQ/L (24.0-28.0)
[2021-05-02 08:18] LABS: BASO # 0.1 10^3/uL (0.0-0.2); BASO % 1.2 % (0.0-1.0); EOS # 0.9 10^3/uL (0.0-0.5); EOS % 7.5 % (0.0-3.0); HEMATOCRIT 43.4 % (36.0-47.0); HEMOGLOBIN 14.3 g/dl (12.0-15.5); LYMPH # 2.1 10^3/uL (1.5-5.0); LYMPH % 17.3 % (24.0-44.0); MEAN CORPUSCULAR HEMOGLOBIN 32.4 pg (27.0-33.0); MEAN CORPUSCULAR HGB CONC 32.9 g/dl (32.0-36.5); MEAN CORPUSCULAR VOLUME 98.4 fl (80.0-96.0); NEUTROPHILS # 7.8 10^3/uL (1.5-8.5); NEUTROPHILS % 65.7 % (36.0-66.0); PLATELET COUNT, AUTOMATED 373 10^3/uL (150-450); RED BLOOD COUNT 4.41 10^6/uL (4.00-5.40); WHITE BLOOD COUNT 11.9 10^3/uL (4.0-10.0)
[2021-05-02 08:53] LABS: ALBUMIN 3.3 GM/DL (3.2-5.2); ALT/SGPT 19 U/L (12-78); BILIRUBIN,DIRECT 0.1 MG/DL (0.0-0.2); BILIRUBIN,TOTAL 0.4 MG/DL (0.2-1.0); BLOOD UREA NITROGEN 6 MG/DL (7-18); CALCIUM LEVEL 8.9 MG/DL (8.8-10.2); CARBON DIOXIDE LEVEL 28 MEQ/L (21-32); CHLORIDE LEVEL 110 MEQ/L (98-107); CREATININE FOR GFR 0.78 MG/DL (0.55-1.30); GLOMERULAR FILTRATION RATE > 60.0 (>39); GLUCOSE, FASTING 92 MG/DL (70-100); NT-PRO BNP 78 PG/ML (<125); POTASSIUM SERUM 4.1 MEQ/L (3.5-5.1); SODIUM LEVEL 143 MEQ/L (136-145); THYROXINE (T4) 9.8 UG/DL (4.5-12.0)
[2021-05-02 09:51] VITALS: O2SAT 95
[2021-05-02] MEDS ORDERED: PRED20TA PO (09:56)
[2021-05-02 10:00] VITALS: BP 124/61
== END 2021-05-02 10:40 | disposition home or self-care (01) ==
LOC: EDBD 07:28 → M ED 07:28
DX: J44.1 Chronic obstructive pulmonary disease with (acute) exacerbation (principal); I10 Essential (primary) hypertension; Z79.899 Other long term (current) drug therapy; F17.210 Nicotine dependence, cigarettes, uncomplicated

== ENCOUNTER 2021-07-09 06:30 | Emergency (ER) | payer OTHER, MEDICARE ==
[2021-07-09 07:11] LABS: ABG BASE EXCESS -1.1 (-2.0-2.0); ABG HCO3 23.8 MEQ/L (22.0-26.0); ABG O2 SATURATION 96.9 % (95.0-99.0); ABG PARTIAL PRESSURE CO2 40.6 mmHg (35.0-45.0); ABG PARTIAL PRESSURE O2 88.3 mmHg (75.0-100.0); ABG STANDARD HCO3 23.5 MEQ/L (22.0-26.0); ABG TOTAL CO2 25.1 MEQ/L (23.0-31.0); ABG pH (ARTERIAL) 7.386 UNITS (7.350-7.450)
[2021-07-09 07:30] LABS: BASO # 0.2 10^3/uL (0.0-0.2); BASO % 2.5 % (0.0-1.0); EOS # 0.7 10^3/uL (0.0-0.5); EOS % 7.1 % (0.0-3.0); HEMATOCRIT 44.4 % (36.0-47.0); LYMPH # 3.3 10^3/uL (1.5-5.0); LYMPH % 34.1 % (24.0-44.0); MEAN CORPUSCULAR HEMOGLOBIN 33.2 pg (27.0-33.0); MEAN CORPUSCULAR HGB CONC 33.8 g/dl (32.0-36.5); MEAN CORPUSCULAR VOLUME 98.2 fl (80.0-96.0); NEUTROPHILS # 4.5 10^3/uL (1.5-8.5); NEUTROPHILS % 46.1 % (36.0-66.0); PLATELET COUNT, AUTOMATED 338 10^3/uL (150-450); RED BLOOD COUNT 4.52 10^6/uL (4.00-5.40); WHITE BLOOD COUNT 9.7 10^3/uL (4.0-10.0)
[2021-07-09 07:50] LABS: CK-MB VALUE MASS 1.6 NG/ML (<3.6); MB/CK RELATIVE INDEX 2.19 (< OR =4)
[2021-07-09 08:03] LABS: ALBUMIN 3.6 GM/DL (3.2-5.2); ALT/SGPT 13 U/L (12-78); BILIRUBIN,DIRECT 0.1 MG/DL (0.0-0.2); BILIRUBIN,TOTAL 0.5 MG/DL (0.2-1.0); BLOOD UREA NITROGEN 9 MG/DL (7-18); CALCIUM LEVEL 9.1 MG/DL (8.8-10.2); CARBON DIOXIDE LEVEL 26 MEQ/L (21-32); CHLORIDE LEVEL 114 MEQ/L (98-107); CREATININE FOR GFR 0.74 MG/DL (0.55-1.30); GLOMERULAR FILTRATION RATE > 60.0 (>39); GLUCOSE, FASTING 96 MG/DL (70-100); NT-PRO BNP 59 PG/ML (<125); POTASSIUM SERUM 3.9 MEQ/L (3.5-5.1); SODIUM LEVEL 142 MEQ/L (136-145); TOTAL PROTEIN 6.7 GM/DL (6.4-8.2)
[2021-07-09] MEDS: COMBIVENT RESPIMAT 100-20MCG INHALER 4GM INH SCH ×3 (08:21→09:05)
[2021-07-09 10:00] LABS: CK-MB VALUE MASS 1.7 NG/ML (<3.6); MB/CK RELATIVE INDEX 2.24 (< OR =4)
[2021-07-09] MEDS ORDERED: PRED10TA2 PO (11:15)
[2021-07-09 11:27] VITALS: BP 127/66
== END 2021-07-09 11:47 | disposition home or self-care (01) ==
LOC: M ED 06:30
DX: J44.1 Chronic obstructive pulmonary disease with (acute) exacerbation (principal); I10 Essential (primary) hypertension; F17.200 Nicotine dependence, unspecified, uncomplicated; M41.9 Scoliosis, unspecified; M85.9 Disorder of bone density and structure, unspecified; Z79.51 Long term (current) use of inhaled steroids; Z79.899 Other long term (current) drug therapy

== ENCOUNTER → 2021-07-13 | Outpatient (CLI) | payer OTHER | LOC: M RAD 13:44 | PROVIDERS: ATTEND Internal Medicine Pulmonary Disease | DX: R91.8 Other nonspecific abnormal finding of lung field (principal) ==

== ENCOUNTER 2021-08-09 06:08 | Emergency (ER) | payer OTHER ==
[~2021-08-09] VITALS: Ht 149.9 cm; Wt 44.2 kg
[~2021-08-09 06:08] MED LIST changes: +ALBU2.5V10 INH; -ALBU83IN INH
[2021-08-09 06:16] VITALS: BP 138/69
[2021-08-09 06:45] LABS: BASO # 0.2 10^3/uL (0.0-0.2); BASO % 1.6 % (0.0-1.0); EOS # 0.9 10^3/uL (0.0-0.5); HEMATOCRIT 47.2 % (36.0-47.0); HEMOGLOBIN 15.3 g/dl (12.0-15.5); LYMPH # 3.9 10^3/uL (1.5-5.0); LYMPH % 32.3 % (24.0-44.0); MEAN CORPUSCULAR HEMOGLOBIN 31.7 pg (27.0-33.0); MEAN CORPUSCULAR HGB CONC 32.4 g/dl (32.0-36.5); MEAN CORPUSCULAR VOLUME 97.9 fl (80.0-96.0); MONO # 1.2 10^3/uL (0.0-0.8); NEUTROPHILS # 5.9 10^3/uL (1.5-8.5); NEUTROPHILS % 48.8 % (36.0-66.0); PLATELET COUNT, AUTOMATED 418 10^3/uL (150-450); RED BLOOD COUNT 4.82 10^6/uL (4.00-5.40); WHITE BLOOD COUNT 12.1 10^3/uL (4.0-10.0)
[2021-08-09] MEDS ORDERED: COMBIVENT RESPIMAT 100-20MCG INHALER 4GM INH STA (06:45)
[2021-08-09 07:24] LABS: ALBUMIN 3.6 GM/DL (3.2-5.2); ALT/SGPT 11 U/L (12-78); BILIRUBIN,DIRECT 0.3 MG/DL (0.0-0.2); BILIRUBIN,TOTAL 0.3 MG/DL (0.2-1.0); BLOOD UREA NITROGEN 8 MG/DL (7-18); CALCIUM LEVEL 8.8 MG/DL (8.8-10.2); CARBON DIOXIDE LEVEL 24 MEQ/L (21-32); CHLORIDE LEVEL 113 MEQ/L (98-107); CREATININE FOR GFR 0.74 MG/DL (0.55-1.30); GLOMERULAR FILTRATION RATE > 60.0 (>39); GLUCOSE, FASTING 91 MG/DL (70-100); NT-PRO BNP 72 PG/ML (<125); POTASSIUM SERUM 4.2 MEQ/L (3.5-5.1); SODIUM LEVEL 143 MEQ/L (136-145); THYROXINE (T4) 7.8 UG/DL (4.5-12.0); TOTAL PROTEIN 7.2 GM/DL (6.4-8.2)
[2021-08-09] MEDS ORDERED: CEFDINIR 300 MG CAP (OMNICEF) PO ONE (09:50)
[2021-08-09] MEDS ORDERED: PRED10TA2 PO (09:58)
[2021-08-09] MEDS ORDERED: CEFD300C41 PO (09:58)
== END 2021-08-09 10:30 | disposition home or self-care (01) ==
LOC: M ED 06:08
DX: J44.1 Chronic obstructive pulmonary disease with (acute) exacerbation (principal); I10 Essential (primary) hypertension; Z99.81 Dependence on supplemental oxygen; Z79.899 Other long term (current) drug therapy; F17.210 Nicotine dependence, cigarettes, uncomplicated

== ENCOUNTER 2021-11-01 13:48 | Emergency (ER) | payer OTHER ==
[~2021-11-01] VITALS: Ht 149.9 cm; Wt 46.5 kg
[~2021-11-01 13:48] MED LIST changes: +CEFD300C41 PO; +LEVO1TAB40 PO; -LEVO750T13 PO
[2021-11-01] MEDS ORDERED: LOSA50TA28 PO (14:00)
[2021-11-01] MEDS ORDERED: BUDE2SUS3 PO (14:00)
[2021-11-01] MEDS ORDERED: methylPREDNISolone 125MG 2ML VIAL IV ONE (14:20)
[2021-11-01 14:36] LABS: VENOUS BASE EXCESS -1.4 (-2.0-2.0); VENOUS HCO3 24.1 MEQ/L (23.0-27.0); VENOUS O2 SATURATION 74.1 % (60.0-80.0); VENOUS PARTIAL PRESSURE CO2 43.4 mmHg (38.0-50.0); VENOUS PARTIAL PRESSURE O2 36.2 mmHg (30.0-50.0); VENOUS PH 7.363 UNITS (7.330-7.430); VENOUS STANDARD HCO3 22.7 MEQ/L; VENOUS TOTAL CO2 25.5 MEQ/L (24.0-28.0)
[2021-11-01] MEDS: COMBIVENT RESPIMAT 100-20MCG INHALER 4GM INH SCH ×2 (14:42→15:18)
[2021-11-01 14:52] LABS: BASO # 0.2 10^3/uL (0.0-0.2); BASO % 1.7 % (0.0-1.0); EOS # 0.4 10^3/uL (0.0-0.5); EOS % 4.4 % (0.0-3.0); HEMATOCRIT 44.8 % (36.0-47.0); HEMOGLOBIN 15.1 g/dl (12.0-15.5); LYMPH # 3.5 10^3/uL (1.5-5.0); LYMPH % 35.2 % (24.0-44.0); MEAN CORPUSCULAR HEMOGLOBIN 32.7 pg (27.0-33.0); MEAN CORPUSCULAR HGB CONC 33.7 g/dl (32.0-36.5); MONO # 0.8 10^3/uL (0.0-0.8); MONO % 8.2 % (2.0-8.0); NEUTROPHILS % 50.2 % (36.0-66.0); PLATELET COUNT, AUTOMATED 308 10^3/uL (150-450); RED BLOOD COUNT 4.62 10^6/uL (4.00-5.40)
[2021-11-01 15:25] LABS: ALBUMIN 3.6 GM/DL (3.2-5.2); ALT/SGPT 15 U/L (12-78); BILIRUBIN,DIRECT 0.1 MG/DL (0.0-0.2); BILIRUBIN,TOTAL 0.6 MG/DL (0.2-1.0); BLOOD UREA NITROGEN 7 MG/DL (7-18); CALCIUM LEVEL 9.2 MG/DL (8.8-10.2); CARBON DIOXIDE LEVEL 24 MEQ/L (21-32); CHLORIDE LEVEL 111 MEQ/L (98-107); CREATININE FOR GFR 0.73 MG/DL (0.55-1.30); GLOMERULAR FILTRATION RATE > 60.0 (>39); GLUCOSE, FASTING 83 MG/DL (70-100); NT-PRO BNP 106 PG/ML (<125); SODIUM LEVEL 141 MEQ/L (136-145); THYROID STIMULATING HORMONE 0.922 uIU/ML (0.358-3.740); THYROXINE (T4) 9.7 UG/DL (4.5-12.0); TOTAL PROTEIN 7.1 GM/DL (6.4-8.2)
[2021-11-01] MEDS ORDERED: PRED20TA PO (15:46)
[2021-11-01] MEDS ORDERED: CEFD300C PO (15:46)
[2021-11-01 16:09] VITALS: BP 139/108
== END 2021-11-01 16:21 | disposition home or self-care (01) ==
LOC: M ED 13:48
DX: J44.1 Chronic obstructive pulmonary disease with (acute) exacerbation (principal); I10 Essential (primary) hypertension; Z99.81 Dependence on supplemental oxygen; Z79.899 Other long term (current) drug therapy; F17.200 Nicotine dependence, unspecified, uncomplicated
CPT/HCPCS: 71045; 80048; 80076; 82803; 83880; 84436; 84443; 84484; 85025; 87040; 87486; 87581; 87633; 87798; 93005; 93041; 94640; 94760; 96374; 99285; J2930

== ENCOUNTER 2022-01-08 11:14 | Emergency (ER) | payer OTHER ==
[~2022-01-08] VITALS: Ht 160 cm; Wt 45.5 kg
[~2022-01-08 11:14] MED LIST changes: +BUDE2SUS3 PO; +CEFD300C PO; +LOSA50TA28 PO
[2022-01-08 11:15] VITALS: BP 175/79
[2022-01-08 11:53] LABS: BASO # 0.1 10^3/uL (0.0-0.2); BASO % 1.1 % (0.0-1.0); EOS # 0.2 10^3/uL (0.0-0.5); HEMATOCRIT 44.5 % (36.0-47.0); HEMOGLOBIN 15.1 g/dl (12.0-15.5); LYMPH # 2.6 10^3/uL (1.5-5.0); LYMPH % 24.7 % (24.0-44.0); MEAN CORPUSCULAR HEMOGLOBIN 32.5 pg (27.0-33.0); MEAN CORPUSCULAR HGB CONC 33.9 g/dl (32.0-36.5); MEAN CORPUSCULAR VOLUME 95.7 fl (80.0-96.0); MONO # 1.1 10^3/uL (0.0-0.8); MONO % 10.2 % (2.0-8.0); NEUTROPHILS # 6.4 10^3/uL (1.5-8.5); NEUTROPHILS % 61.7 % (36.0-66.0); PLATELET COUNT, AUTOMATED 386 10^3/uL (150-450); RED BLOOD COUNT 4.65 10^6/uL (4.00-5.40); WHITE BLOOD COUNT 10.3 10^3/uL (4.0-10.0)
[2022-01-08 12:32] LABS: ALBUMIN 3.5 GM/DL (3.2-5.2); ALT/SGPT 22 U/L (12-78); BILIRUBIN,DIRECT 0.2 MG/DL (0.0-0.2); BILIRUBIN,TOTAL 0.5 MG/DL (0.2-1.0); BLOOD UREA NITROGEN 4 MG/DL (7-18); CALCIUM LEVEL 9.2 MG/DL (8.8-10.2); CARBON DIOXIDE LEVEL 27 MEQ/L (21-32); CHLORIDE LEVEL 108 MEQ/L (98-107); CREATININE FOR GFR 0.69 MG/DL (0.55-1.30); GLOMERULAR FILTRATION RATE > 60.0 (>39); GLUCOSE, FASTING 145 MG/DL (70-100); LIPASE 102 U/L (73-393); POTASSIUM SERUM 3.7 MEQ/L (3.5-5.1); SODIUM LEVEL 140 MEQ/L (136-145); TOTAL PROTEIN 7.2 GM/DL (6.4-8.2)
== END 2022-01-08 14:12 | disposition left against medical advice (07) ==
LOC: M ED 11:14
DX: Z53.21 Procedure and treatment not carried out due to patient leaving prior to being seen by health care provider (principal)

== ENCOUNTER 2022-01-14 06:14 | Emergency (ER) | payer OTHER ==
[2022-01-14 06:43] LABS: VENOUS BASE EXCESS -1.8 (-2.0-2.0); VENOUS HCO3 24.9 MEQ/L (23.0-27.0); VENOUS O2 SATURATION 90.4 % (60.0-80.0); VENOUS PARTIAL PRESSURE CO2 49.4 mmHg (38.0-50.0); VENOUS PARTIAL PRESSURE O2 61.3 mmHg (30.0-50.0); VENOUS PH 7.321 UNITS (7.330-7.430); VENOUS STANDARD HCO3 22.8 MEQ/L; VENOUS TOTAL CO2 26.5 MEQ/L (24.0-28.0)
[2022-01-14 06:44] LABS: BASO # 0.2 10^3/uL (0.0-0.2); BASO % 1.3 % (0.0-1.0); EOS # 0.6 10^3/uL (0.0-0.5); EOS % 4.8 % (0.0-3.0); HEMATOCRIT 44.3 % (36.0-47.0); HEMOGLOBIN 14.6 g/dl (12.0-15.5); LYMPH % 24.1 % (24.0-44.0); MEAN CORPUSCULAR HEMOGLOBIN 31.8 pg (27.0-33.0); MEAN CORPUSCULAR VOLUME 96.5 fl (80.0-96.0); MONO # 1.3 10^3/uL (0.0-0.8); MONO % 10.2 % (2.0-8.0); NEUTROPHILS # 7.4 10^3/uL (1.5-8.5); NEUTROPHILS % 59.3 % (36.0-66.0); PLATELET COUNT, AUTOMATED 426 10^3/uL (150-450); RED BLOOD COUNT 4.59 10^6/uL (4.00-5.40); WHITE BLOOD COUNT 12.5 10^3/uL (4.0-10.0)
[2022-01-14 07:40] LABS: ALBUMIN 3.5 G/DL (3.2-5.2); ALT/SGPT 25 U/L (7.0-40); BILIRUBIN,DIRECT 0.1 MG/DL (<0.4); BILIRUBIN,TOTAL 0.4 MG/DL (0.3-1.2); BLOOD UREA NITROGEN 8 MG/DL (9-23); CALCIUM LEVEL 9.4 MG/DL (8.3-10.6); CARBON DIOXIDE LEVEL 25 MMOL/L (20-31); CHLORIDE LEVEL 110 MMOL/L (98-107); CK-MB VALUE MASS 1.4 NG/ML (<3.6); CPK CREATINE PHOSPHOKINASE 79 U/L (34-145); GLOMERULAR FILTRATION RATE > 60.0 (>39); GLUCOSE, FASTING 105 MG/DL (74-106); MB/CK RELATIVE INDEX 1.77 (< OR =4); POTASSIUM SERUM 3.7 MMOL/L (3.5-5.1); SODIUM LEVEL 142 MMOL/L (136-145); TOTAL PROTEIN 6.5 G/DL (5.7-8.2)
[2022-01-14] MEDS ORDERED: IPRATROPIUM 0.5MG/ALBUTEROL 2.5MG INH SOL UD 3ML (DUONEB) NEB ONE (07:55)
[2022-01-14] MEDS ORDERED: ISOVUE-370 76% 100ML VIAL As Ordered ONE (08:16)
[2022-01-14 08:52] LABS: CK-MB VALUE MASS 1.6 NG/ML (<3.6); MB/CK RELATIVE INDEX 2.05 (< OR =4)
[2022-01-14] MEDS ORDERED: CEFD300C41 PO (12:13)
[2022-01-14] MEDS ORDERED: PRED20TA PO (12:15)
[2022-01-14 12:30] VITALS: O2SAT 91
[2022-01-14 12:45] VITALS: BP 141/71
== END 2022-01-14 12:58 | disposition home or self-care (01) ==
LOC: M ED 06:14
DX: J45.909 Unspecified asthma, uncomplicated (principal); J44.0 Chronic obstructive pulmonary disease with (acute) lower respiratory infection; J98.01 Acute bronchospasm; I10 Essential (primary) hypertension; E78.5 Hyperlipidemia, unspecified; I71.40 Abdominal aortic aneurysm, without rupture, unspecified; Z99.81 Dependence on supplemental oxygen; F17.200 Nicotine dependence, unspecified, uncomplicated; Z79.899 Other long term (current) drug therapy

== ENCOUNTER 2022-03-23 07:40 | Emergency (ER) | payer OTHER, MEDICARE ==
[~2022-03-23] VITALS: Ht 149.9 cm; Wt 43.6 kg
[2022-03-23] MEDS ORDERED: methylPREDNISolone 125MG 2ML VIAL IV ONE (08:00)
[2022-03-23 08:25] LABS: BASO # 0.2 10^3/uL (0.0-0.2); BASO % 2.1 % (0.0-1.0); EOS % 9.7 % (0.0-3.0); HEMOGLOBIN 15.2 g/dl (12.0-15.5); LYMPH # 3.7 10^3/uL (1.5-5.0); LYMPH % 34.4 % (24.0-44.0); MEAN CORPUSCULAR HEMOGLOBIN 31.5 pg (27.0-33.0); MEAN CORPUSCULAR HGB CONC 32.3 g/dl (32.0-36.5); MEAN CORPUSCULAR VOLUME 97.3 fl (80.0-96.0); MONO # 1.1 10^3/uL (0.0-0.8); MONO % 10.5 % (2.0-8.0); NEUTROPHILS # 4.6 10^3/uL (1.5-8.5); NEUTROPHILS % 43.1 % (36.0-66.0); PLATELET COUNT, AUTOMATED 349 10^3/uL (150-450); RED BLOOD COUNT 4.83 10^6/uL (4.00-5.40); WHITE BLOOD COUNT 10.7 10^3/uL (4.0-10.0)
[2022-03-23] MEDS: ALBUTEROL SULFATE 2.5MG/0.5ML INH NEB SOLN INH PRN ×2 (08:42→08:43)
[2022-03-23 08:48] LABS: ABG BASE EXCESS -2.1 (-2.0-2.0); ABG HCO3 22.2 MEQ/L (22.0-26.0); ABG O2 SATURATION 95.8 % (95.0-99.0); ABG PARTIAL PRESSURE CO2 36.7 mmHg (35.0-45.0); ABG PARTIAL PRESSURE O2 80.3 mmHg (75.0-100.0); ABG STANDARD HCO3 22.7 MEQ/L (22.0-26.0); ABG TOTAL CO2 23.3 MEQ/L (23.0-31.0); ABG pH (ARTERIAL) 7.399 UNITS (7.350-7.450)
[2022-03-23 08:52] LABS: ALBUMIN 3.7 G/DL (3.2-5.2); ALKALINE PHOSPHATASE 63 U/L (46-116); ALT/SGPT 33 U/L (7.0-40); AST/SGOT 31 U/L (<34); BILIRUBIN,DIRECT 0.2 MG/DL (<0.4); BILIRUBIN,TOTAL 0.6 MG/DL (0.3-1.2); BLOOD UREA NITROGEN 8 MG/DL (9-23); CALCIUM LEVEL 9.4 MG/DL (8.3-10.6); CARBON DIOXIDE LEVEL 24 MMOL/L (20-31); CHLORIDE LEVEL 111 MMOL/L (98-107); CREATININE FOR GFR 0.63 MG/DL (0.55-1.30); GLOMERULAR FILTRATION RATE > 60.0 (>39); GLUCOSE, FASTING 84 MG/DL (74-106); POTASSIUM SERUM 4.1 MMOL/L (3.5-5.1); SODIUM LEVEL 143 MMOL/L (136-145); TOTAL PROTEIN 6.9 G/DL (5.7-8.2)
[2022-03-23 08:54] LABS: THYROID STIMULATING HORMONE 1.865 uIU/ML (0.55-4.78)
[2022-03-23 09:58] VITALS: O2SAT 87
[2022-03-23] MEDS ORDERED: PRED20TA PO (10:15)
[2022-03-23 10:30] VITALS: BP 148/85
== END 2022-03-23 11:52 | disposition home or self-care (01) ==
LOC: M ED 07:40
DX: J44.1 Chronic obstructive pulmonary disease with (acute) exacerbation (principal); I51.7 Cardiomegaly; E78.5 Hyperlipidemia, unspecified; Z90.710 Acquired absence of both cervix and uterus; F17.200 Nicotine dependence, unspecified, uncomplicated; Z79.51 Long term (current) use of inhaled steroids; Z79.899 Other long term (current) drug therapy
CPT/HCPCS: 36600; 71045; 80048; 80076; 82803; 83605; 83880; 84443; 85025; 85379; 87040; 87077; 87186; 87486; 87581; 87633; 87798; 93005; 93041; 94640; 94760; 96374; 99285; J2930

== ENCOUNTER 2022-03-30 21:04 | Emergency (ER) | payer OTHER, MEDICARE ==
[~2022-03-30] VITALS: Ht 160 cm; Wt 43.2 kg
[2022-03-30 22:47] LABS: BASO # 0.1 10^3/uL (0.0-0.2); BASO % 0.6 % (0.0-1.0); EOS # 0.2 10^3/uL (0.0-0.5); EOS % 0.9 % (0.0-3.0); HEMATOCRIT 43.5 % (36.0-47.0); HEMOGLOBIN 14.4 g/dl (12.0-15.5); LYMPH # 2.3 10^3/uL (1.5-5.0); LYMPH % 11.6 % (24.0-44.0); MEAN CORPUSCULAR HEMOGLOBIN 31.5 pg (27.0-33.0); MEAN CORPUSCULAR HGB CONC 33.1 g/dl (32.0-36.5); MEAN CORPUSCULAR VOLUME 95.2 fl (80.0-96.0); MONO % 11.6 % (2.0-8.0); NEUTROPHILS # 14.5 10^3/uL (1.5-8.5); NEUTROPHILS % 74.6 % (36.0-66.0); PLATELET COUNT, AUTOMATED 334 10^3/uL (150-450); RED BLOOD COUNT 4.57 10^6/uL (4.00-5.40); WHITE BLOOD COUNT 19.4 10^3/uL (4.0-10.0)
[2022-03-30 22:55] LABS: ERYTHROCYTE SEDIMENTATION RATE 21 mm/hr (0-30)
[2022-03-30 22:59] LABS: MONO # 2.3 10^3/uL (0.0-0.8)
[2022-03-30 23:13] LABS: URIC ACID 3.7 MG/DL (3.1-7.8)
[2022-03-30 23:15] VITALS: BP 154/75
[2022-03-30] MEDS ORDERED: KETOROLAC 30 MG/ML 1ML VIAL IV ONE (23:15)
[2022-03-30 23:16] LABS: BLOOD UREA NITROGEN 12 MG/DL (9-23); CALCIUM LEVEL 8.4 MG/DL (8.3-10.6); CARBON DIOXIDE LEVEL 24 MMOL/L (20-31); CHLORIDE LEVEL 107 MMOL/L (98-107); CREATININE FOR GFR 0.72 MG/DL (0.55-1.30); GLOMERULAR FILTRATION RATE > 60.0 (>39); GLUCOSE, FASTING 114 MG/DL (74-106); POTASSIUM SERUM 4.2 MMOL/L (3.5-5.1); SODIUM LEVEL 138 MMOL/L (136-145)
[2022-03-30] MEDS ORDERED: NAPR-837 PO (23:54)
[2022-03-30] MEDS ORDERED: NORCO 5/325MG TABLET (HOME DOSE PACK) PO ONE (23:55)
== END 2022-03-31 00:24 | disposition home or self-care (01) ==
LOC: M ED 21:04 → EDBD 21:04 → M ED 03-31 00:24
DX: M19.031 Primary osteoarthritis, right wrist (principal); I10 Essential (primary) hypertension; J44.9 Chronic obstructive pulmonary disease, unspecified; F17.200 Nicotine dependence, unspecified, uncomplicated; Z79.51 Long term (current) use of inhaled steroids; Z79.1 Long term (current) use of non-steroidal anti-inflammatories (NSAID); Z79.899 Other long term (current) drug therapy
CPT/HCPCS: 73110; 80048; 84550; 85025; 85652; 86140; 96374; 99284; J1885

== ENCOUNTER 2022-05-14 06:31 | Emergency (ER) | payer OTHER, MEDICARE ==
[~2022-05-14] VITALS: Ht 149.9 cm; Wt 42.7 kg
[~2022-05-14 06:31] MED LIST changes: +NAPR-837 PO
[2022-05-14 07:30] LABS: BASO # 0.3 10^3/uL (0.0-0.2); BASO % 2.1 % (0.0-1.0); EOS # 0.7 10^3/uL (0.0-0.5); EOS % 5.7 % (0.0-3.0); HEMATOCRIT 46.1 % (36.0-47.0); HEMOGLOBIN 15.2 g/dl (12.0-15.5); LYMPH # 3.6 10^3/uL (1.5-5.0); LYMPH % 28.5 % (24.0-44.0); MEAN CORPUSCULAR HEMOGLOBIN 31.7 pg (27.0-33.0); MEAN CORPUSCULAR VOLUME 96.2 fl (80.0-96.0); MONO # 1.2 10^3/uL (0.0-0.8); MONO % 9.8 % (2.0-8.0); NEUTROPHILS # 6.7 10^3/uL (1.5-8.5); NEUTROPHILS % 53.6 % (36.0-66.0); PLATELET COUNT, AUTOMATED 360 10^3/uL (150-450); RED BLOOD COUNT 4.79 10^6/uL (4.00-5.40); WHITE BLOOD COUNT 12.6 10^3/uL (4.0-10.0)
[2022-05-14 07:44] LABS: ABG BASE EXCESS -2.5 (-2.0-2.0); ABG HCO3 22.1 MEQ/L (22.0-26.0); ABG O2 SATURATION 96.9 % (95.0-99.0); ABG PARTIAL PRESSURE CO2 37.8 mmHg (35.0-45.0); ABG PARTIAL PRESSURE O2 87.7 mmHg (75.0-100.0); ABG STANDARD HCO3 22.4 MEQ/L (22.0-26.0); ABG TOTAL CO2 23.2 MEQ/L (23.0-31.0); ABG pH (ARTERIAL) 7.384 UNITS (7.350-7.450)
[2022-05-14 07:54] LABS: CK-MB VALUE MASS < 1.0 NG/ML (<3.6)
[2022-05-14 07:57] LABS: CPK CREATINE PHOSPHOKINASE 30 U/L (34-145); MB/CK RELATIVE INDEX 3.33 (< OR =4)
[2022-05-14 07:57] LABS: INR 0.91; PROTHROMBIN TIME 12.4 SECONDS (12.5-14.5)
[2022-05-14 07:59] LABS: CPK CREATINE PHOSPHOKINASE 58 U/L (34-145); MB/CK RELATIVE INDEX 1.72 (< OR =4); THYROID STIMULATING HORMONE 1.081 uIU/ML (0.55-4.78); THYROXINE (T4) 4.8 UG/DL (4.5-10.9)
[2022-05-14 08:07] LABS: ALKALINE PHOSPHATASE 36 U/L (46-116); ALT/SGPT 14 U/L (7.0-40); AST/SGOT 12 U/L (<34); BILIRUBIN,DIRECT 0.1 MG/DL (<0.4); BILIRUBIN,TOTAL 0.4 MG/DL (0.3-1.2); BLOOD UREA NITROGEN 7 MG/DL (9-23); CALCIUM LEVEL 4.7 MG/DL (8.3-10.6); CARBON DIOXIDE LEVEL 16 MMOL/L (20-31); CHLORIDE LEVEL 127 MMOL/L (98-107); CREATININE FOR GFR 0.36 MG/DL (0.55-1.30); GLOMERULAR FILTRATION RATE > 60.0 (>39); GLUCOSE, FASTING 66 MG/DL (74-106); POTASSIUM SERUM 2.3 MMOL/L (3.5-5.1); SODIUM LEVEL 148 MMOL/L (136-145); TOTAL PROTEIN 3.7 G/DL (5.7-8.2)
[2022-05-14 09:25] LABS: BLOOD UREA NITROGEN 10 MG/DL (9-23); CARBON DIOXIDE LEVEL 27 MMOL/L (20-31); CHLORIDE LEVEL 110 MMOL/L (98-107); CREATININE FOR GFR 0.64 MG/DL (0.55-1.30); GLOMERULAR FILTRATION RATE > 60.0 (>39); GLUCOSE, FASTING 105 MG/DL (74-106); MAGNESIUM LEVEL 1.9 MG/DL (1.8-2.4); POTASSIUM SERUM 4.4 MMOL/L (3.5-5.1); SODIUM LEVEL 141 MMOL/L (136-145)
[2022-05-14] MEDS ORDERED: PRED10TA2 PO (10:09)
[2022-05-14 10:19] VITALS: BP 140/64
== END 2022-05-14 10:33 | disposition home or self-care (01) ==
LOC: M ED 06:31
DX: J44.1 Chronic obstructive pulmonary disease with (acute) exacerbation (principal); I10 Essential (primary) hypertension; Z87.891 Personal history of nicotine dependence

== ENCOUNTER 2022-06-07 06:43 | Emergency (ER) | payer MEDICARE, OTHER ==
[~2022-06-07] VITALS: Ht 149.9 cm; Wt 43.6 kg
[2022-06-07] MEDS ORDERED: methylPREDNISolone 125MG 2ML VIAL IV ONE (07:30)
[2022-06-07 07:37] LABS: VENOUS BASE EXCESS -1.8 (-2.0-2.0); VENOUS HCO3 25.1 MEQ/L (23.0-27.0); VENOUS PARTIAL PRESSURE CO2 50.7 mmHg (38.0-50.0); VENOUS PARTIAL PRESSURE O2 48.8 mmHg (30.0-50.0); VENOUS PH 7.313 UNITS (7.330-7.430); VENOUS STANDARD HCO3 22.6 MEQ/L; VENOUS TOTAL CO2 26.7 MEQ/L (24.0-28.0)
[2022-06-07] MEDS: IPRATROPIUM 0.5MG/ALBUTEROL 2.5MG INH SOL UD 3ML (DUONEB) NEB SCH ×3 (07:40→08:07)
[2022-06-07 07:46] LABS: BASO # 0.1 10^3/uL (0.0-0.2); BASO % 1.3 % (0.0-1.0); EOS # 0.5 10^3/uL (0.0-0.5); EOS % 4.8 % (0.0-3.0); HEMATOCRIT 44.7 % (36.0-47.0); HEMOGLOBIN 14.7 g/dl (12.0-15.5); LYMPH # 2.6 10^3/uL (1.5-5.0); LYMPH % 23.3 % (24.0-44.0); MEAN CORPUSCULAR HEMOGLOBIN 32.5 pg (27.0-33.0); MEAN CORPUSCULAR HGB CONC 32.9 g/dl (32.0-36.5); MEAN CORPUSCULAR VOLUME 98.7 fl (80.0-96.0); MONO % 8.9 % (2.0-8.0); NEUTROPHILS # 6.8 10^3/uL (1.5-8.5); NEUTROPHILS % 61.4 % (36.0-66.0); PLATELET COUNT, AUTOMATED 369 10^3/uL (150-450); RED BLOOD COUNT 4.53 10^6/uL (4.00-5.40); WHITE BLOOD COUNT 11.1 10^3/uL (4.0-10.0)
[2022-06-07 07:50] LABS: ALBUMIN 3.3 G/DL (3.2-5.2); ALKALINE PHOSPHATASE 59 U/L (46-116); ALT/SGPT 14 U/L (7.0-40); AST/SGOT 22 U/L (<34); BILIRUBIN,DIRECT < 0.1 MG/DL (<0.4); BILIRUBIN,TOTAL 0.3 MG/DL (0.3-1.2); BLOOD UREA NITROGEN 8 MG/DL (9-23); CALCIUM LEVEL 8.4 MG/DL (8.3-10.6); CARBON DIOXIDE LEVEL 24 MMOL/L (20-31); CHLORIDE LEVEL 112 MMOL/L (98-107); CREATININE FOR GFR 0.68 MG/DL (0.55-1.30); GLOMERULAR FILTRATION RATE > 60.0 (>39); GLUCOSE, FASTING 100 MG/DL (74-106); POTASSIUM SERUM 4.4 MMOL/L (3.5-5.1); SODIUM LEVEL 142 MMOL/L (136-145); TOTAL PROTEIN 6.3 G/DL (5.7-8.2)
[2022-06-07 07:52] LABS: THYROID STIMULATING HORMONE 1.156 uIU/ML (0.55-4.78)
[2022-06-07 09:22] VITALS: BP 152/78
[2022-06-07 09:27] VITALS: O2SAT 92
[2022-06-07] MEDS ORDERED: DOXY100C81 PO (09:31)
[2022-06-07] MEDS ORDERED: PRED20TA PO (09:31)
== END 2022-06-07 09:47 | disposition home or self-care (01) ==
LOC: M ED 06:43
DX: J44.1 Chronic obstructive pulmonary disease with (acute) exacerbation (principal); I10 Essential (primary) hypertension; F17.200 Nicotine dependence, unspecified, uncomplicated
CPT/HCPCS: 71045; 80048; 80076; 82803; 83605; 83880; 84443; 85025; 87040; 87486; 87581; 87633; 87798; 93005; 93041; 94640; 94760; 96374; 99285; J2930

== ENCOUNTER 2022-07-04 06:39 | Day surgery (SDC) | payer OTHER, MEDICARE ==
[~2022-07-04] VITALS: Ht 149.9 cm; Wt 44.0 kg
[~2022-07-04 06:39] MED LIST changes: +ALBU8.5H INH; +BSS IRRIG/VANCO(10MG)/TOBRA(5MG)/EPINEPH(1:1000-0.5CC)500ML BAG-ORONLY IR ONE; +CYCLOPENTOLATE 1% OPHTH SOLN 2ML BTL OS SCH; +DOXY100C81 PO; +IBUP200T46 PO; +LIDOCAINE 3.5 % 1ML OPHTH TOPICAL GEL OU ONE; +LOSA100T46 PO; +OFLOXACIN 0.3 % (OCUFLOX) OPTH SOL 5ML OS ONE; +PHENYLEPHRINE 10% OPHTH SOL 5ML OS PRN; +PHENYLEPHRINE 2.5% OPHTH SOL 2ML OS SCH; +SIMV20TA22 PO; +TROPICAMIDE 1% OPHTH SOLN 15ML OS SCH
[2022-07-04] MEDS ORDERED: LIDOCAINE 1% SDV 5ML VIAL As Ordered ONE (06:49)
[2022-07-04] MEDS ORDERED: CEFUROXIME 1MG/0.1ML INTRACAMERAL INJ As Ordered ONE (06:49)
[2022-07-04] MEDS ORDERED: fentaNYL 100 MCG/2 ML INJECTION As Ordered ONE (07:02)
[2022-07-04] MEDS ORDERED: MIDAZOLAM INJ 2MG/2ML VIAL As Ordered ONE (07:02)
[2022-07-04 08:40] VITALS: BP 120/75
== END 2022-07-04 09:28 | disposition home or self-care (01) ==
LOC: M SDC 06:39
PROVIDERS: ATTEND Ophthalmology
DX: H25.12 Age-related nuclear cataract, left eye (principal); I10 Essential (primary) hypertension; E78.5 Hyperlipidemia, unspecified; J44.9 Chronic obstructive pulmonary disease, unspecified; F17.210 Nicotine dependence, cigarettes, uncomplicated; Z79.899 Other long term (current) drug therapy
CPT/HCPCS: 66984; J0697; J2250; J3010; V2632

== ENCOUNTER 2022-07-18 08:32 | Emergency (ER) | payer OTHER, MEDICARE ==
[~2022-07-18] VITALS: Ht 149.9 cm; Wt 43.6 kg
[~2022-07-18 08:32] MED LIST changes: -BSS IRRIG/VANCO(10MG)/TOBRA(5MG)/EPINEPH(1:1000-0.5CC)500ML BAG-ORONLY IR ONE; -CYCLOPENTOLATE 1% OPHTH SOLN 2ML BTL OS SCH; -LIDOCAINE 3.5 % 1ML OPHTH TOPICAL GEL OU ONE; -OFLOXACIN 0.3 % (OCUFLOX) OPTH SOL 5ML OS ONE; -PHENYLEPHRINE 10% OPHTH SOL 5ML OS PRN; -PHENYLEPHRINE 2.5% OPHTH SOL 2ML OS SCH; -TROPICAMIDE 1% OPHTH SOLN 15ML OS SCH
[2022-07-18] MEDS: IPRATROPIUM 0.5MG/ALBUTEROL 2.5MG INH SOL UD 3ML (DUONEB) NEB PRN ×3 (08:57→10:32)
[2022-07-18 09:09] LABS: ABG BASE EXCESS -4.6 (-2.0-2.0); ABG HCO3 19.1 MMOL/L (22.0-26.0); ABG O2 SATURATION 93.9 % (95.0-99.0); ABG PARTIAL PRESSURE O2 67.6 mmHg (75.0-100.0); ABG STANDARD HCO3 20.6 MMOL/L. (22.0-26.0); ABG TOTAL CO2 20.1 MMOL/L (23.0-31.0); ABG pH (ARTERIAL) 7.394 UNITS (7.350-7.450)
[2022-07-18 09:23] LABS: BASO # 0.2 10^3/uL (0.0-0.2); BASO % 1.7 % (0.0-1.0); EOS # 0.5 10^3/uL (0.0-0.5); EOS % 4.3 % (0.0-3.0); HEMATOCRIT 44.5 % (36.0-47.0); HEMOGLOBIN 14.5 g/dl (12.0-15.5); LYMPH # 2.8 10^3/uL (1.5-5.0); LYMPH % 26.5 % (24.0-44.0); MEAN CORPUSCULAR HEMOGLOBIN 32.3 pg (27.0-33.0); MEAN CORPUSCULAR HGB CONC 32.6 g/dl (32.0-36.5); MEAN CORPUSCULAR VOLUME 99.1 fl (80.0-96.0); MONO # 0.9 10^3/uL (0.0-0.8); MONO % 8.8 % (2.0-8.0); NEUTROPHILS # 6.2 10^3/uL (1.5-8.5); NEUTROPHILS % 58.3 % (36.0-66.0); PLATELET COUNT, AUTOMATED 355 10^3/uL (150-450); RED BLOOD COUNT 4.49 10^6/uL (4.00-5.40); WHITE BLOOD COUNT 10.6 10^3/uL (4.0-10.0)
[2022-07-18 09:51] LABS: ALBUMIN 3.5 G/DL (3.2-5.2); ALKALINE PHOSPHATASE 60 U/L (46-116); ALT/SGPT 14 U/L (7.0-40); AST/SGOT 19 U/L (<34); BILIRUBIN,DIRECT 0.1 MG/DL (<0.4); BILIRUBIN,TOTAL 0.4 MG/DL (0.3-1.2); BLOOD UREA NITROGEN 9 MG/DL (9-23); CALCIUM LEVEL 8.8 MG/DL (8.3-10.6); CARBON DIOXIDE LEVEL 26 MMOL/L (20-31); CHLORIDE LEVEL 114 MMOL/L (98-107); CREATININE FOR GFR 0.67 MG/DL (0.55-1.30); GLOMERULAR FILTRATION RATE > 60.0 (>39); GLUCOSE, FASTING 86 MG/DL (74-106); POTASSIUM SERUM 4.3 MMOL/L (3.5-5.1); SODIUM LEVEL 141 MMOL/L (136-145); TOTAL PROTEIN 6.6 G/DL (5.7-8.2)
[2022-07-18 09:52] LABS: THYROID STIMULATING HORMONE 1.214 uIU/ML (0.55-4.78)
[2022-07-18 12:30] VITALS: BP 146/72
[2022-07-18 12:38] VITALS: O2SAT 95
[2022-07-18] MEDS ORDERED: PRED10TA2 PO (12:50)
== END 2022-07-18 13:13 | disposition home or self-care (01) ==
LOC: M ED 08:32
DX: J44.1 Chronic obstructive pulmonary disease with (acute) exacerbation (principal); I10 Essential (primary) hypertension; F17.200 Nicotine dependence, unspecified, uncomplicated; Z99.81 Dependence on supplemental oxygen; Z79.899 Other long term (current) drug therapy; Z79.51 Long term (current) use of inhaled steroids

== ENCOUNTER 2022-08-11 06:32 | Emergency (ER) | payer OTHER, MEDICARE ==
[~2022-08-11 06:32] MED LIST changes: -DOXY100C81 PO; +DOXY100C82 PO
[2022-08-11] MEDS ORDERED: methylPREDNISolone 125MG 2ML VIAL IV ONE (07:20)
[2022-08-11] MEDS: IPRATROPIUM 0.5MG/ALBUTEROL 2.5MG INH SOL UD 3ML (DUONEB) NEB PRN ×3 (07:27→07:55)
[2022-08-11 07:31] LABS: BASO # 0.2 10^3/uL (0.0-0.2); BASO % 1.4 % (0.0-1.0); EOS # 0.8 10^3/uL (0.0-0.5); HEMATOCRIT 46.3 % (36.0-47.0); HEMOGLOBIN 15.3 g/dl (12.0-15.5); LYMPH # 3.1 10^3/uL (1.5-5.0); LYMPH % 24.2 % (24.0-44.0); MEAN CORPUSCULAR HEMOGLOBIN 32.1 pg (27.0-33.0); MEAN CORPUSCULAR VOLUME 97.3 fl (80.0-96.0); MONO # 1.1 10^3/uL (0.0-0.8); MONO % 8.8 % (2.0-8.0); NEUTROPHILS # 7.6 10^3/uL (1.5-8.5); NEUTROPHILS % 59.2 % (36.0-66.0); PLATELET COUNT, AUTOMATED 426 10^3/uL (150-450); RED BLOOD COUNT 4.76 10^6/uL (4.00-5.40); WHITE BLOOD COUNT 12.8 10^3/uL (4.0-10.0)
[2022-08-11 07:39] LABS: ALBUMIN 3.5 G/DL (3.2-5.2); ALKALINE PHOSPHATASE 60 U/L (46-116); ALT/SGPT 14 U/L (7.0-40); AST/SGOT 18 U/L (<34); BILIRUBIN,DIRECT 0.1 MG/DL (<0.4); BILIRUBIN,TOTAL 0.5 MG/DL (0.3-1.2); BLOOD UREA NITROGEN 11 MG/DL (9-23); CALCIUM LEVEL 8.5 MG/DL (8.3-10.6); CARBON DIOXIDE LEVEL 24 MMOL/L (20-31); CHLORIDE LEVEL 110 MMOL/L (98-107); CREATININE FOR GFR 0.75 MG/DL (0.55-1.30); GLOMERULAR FILTRATION RATE > 60.0 (>39); GLUCOSE, FASTING 102 MG/DL (74-106); POTASSIUM SERUM 4.3 MMOL/L (3.5-5.1); SODIUM LEVEL 140 MMOL/L (136-145); TOTAL PROTEIN 6.9 G/DL (5.7-8.2)
[2022-08-11 07:41] LABS: THYROID STIMULATING HORMONE 1.684 uIU/ML (0.55-4.78)
[2022-08-11 07:42] LABS: ABG BASE EXCESS -1.9 (-2.0-2.0); ABG HCO3 22.6 MMOL/L (22.0-26.0); ABG O2 SATURATION 93.5 % (95.0-99.0); ABG PARTIAL PRESSURE CO2 37.8 mmHg (35.0-45.0); ABG STANDARD HCO3 22.8 MMOL/L. (22.0-26.0); ABG TOTAL CO2 23.7 MMOL/L (23.0-31.0); ABG pH (ARTERIAL) 7.394 UNITS (7.350-7.450)
[2022-08-11 09:31] VITALS: O2SAT 90
[2022-08-11] MEDS ORDERED: PRED20TA PO (09:45)
[2022-08-11] MEDS ORDERED: DOXY100C82 PO (09:45)
[2022-08-11 10:01] VITALS: BP 110/66; TEMP 97.3; O2SAT 90
== END 2022-08-11 10:08 | disposition home or self-care (01) ==
LOC: M ED 06:32
DX: J44.1 Chronic obstructive pulmonary disease with (acute) exacerbation (principal); I10 Essential (primary) hypertension; F17.200 Nicotine dependence, unspecified, uncomplicated; Z79.52 Long term (current) use of systemic steroids; Z79.899 Other long term (current) drug therapy; Z79.51 Long term (current) use of inhaled steroids
CPT/HCPCS: 36600; 71045; 80048; 80076; 82803; 83605; 83880; 84436; 84443; 85025; 87040; 87486; 87581; 87633; 87798; 93005; 93041; 94640; 94760; 96374; 99285; J2930

== ENCOUNTER 2022-08-31 07:11 | Emergency (ER) | payer MEDICARE, OTHER ==
[~2022-08-31] VITALS: Ht 149.9 cm; Wt 43.7 kg
[2022-08-31] MEDS: IPRATROPIUM 0.5MG/ALBUTEROL 2.5MG INH SOL UD 3ML (DUONEB) NEB SCH ×3 (08:00→08:19)
[2022-08-31] MEDS ORDERED: PRED10TA2 PO (09:37)
[2022-08-31 09:50] VITALS: BP 141/69; TEMP 97.5; O2SAT 95
== END 2022-08-31 10:00 | disposition home or self-care (01) ==
LOC: M ED 07:11 → EDBD 07:11 → EDSEX 07:11 → M ED 10:00
DX: J44.1 Chronic obstructive pulmonary disease with (acute) exacerbation (principal); I10 Essential (primary) hypertension; F17.200 Nicotine dependence, unspecified, uncomplicated

== ENCOUNTER 2022-10-24 04:59 | Observation (INO) | payer MEDICARE, OTHER ==
[~2022-10-24] VITALS: Ht 149.9 cm; Wt 44.3 kg
[2022-10-24] MEDS: IPRATROPIUM 0.5MG/ALBUTEROL 2.5MG INH SOL UD 3ML (DUONEB) NEB PRN ×2 (05:22→05:23)
[2022-10-24 05:24] LABS: ABG BASE EXCESS -3.4 (-2.0-2.0); ABG HCO3 20.6 MMOL/L (22.0-26.0); ABG O2 SATURATION 99.1 % (95.0-99.0); ABG PARTIAL PRESSURE CO2 34.2 mmHg (35.0-45.0); ABG STANDARD HCO3 21.7 MMOL/L. (22.0-26.0); ABG TOTAL CO2 21.7 MMOL/L (23.0-31.0); ABG pH (ARTERIAL) 7.398 UNITS (7.350-7.450)
[2022-10-24 05:42] LABS: BASO # 0.2 10^3/uL (0.0-0.2); BASO % 1.9 % (0.0-1.0); EOS # 0.9 10^3/uL (0.0-0.5); EOS % 8.3 % (0.0-3.0); HEMATOCRIT 48.4 % (36.0-47.0); HEMOGLOBIN 16.1 g/dl (12.0-15.5); LYMPH # 4.8 10^3/uL (1.5-5.0); LYMPH % 46.6 % (24.0-44.0); MEAN CORPUSCULAR HEMOGLOBIN 32.7 pg (27.0-33.0); MEAN CORPUSCULAR HGB CONC 33.3 g/dl (32.0-36.5); MEAN CORPUSCULAR VOLUME 98.2 fl (80.0-96.0); MONO # 1.1 10^3/uL (0.0-0.8); NEUTROPHILS # 3.3 10^3/uL (1.5-8.5); NEUTROPHILS % 31.9 % (36.0-66.0); PLATELET COUNT, AUTOMATED 395 10^3/uL (150-450); RED BLOOD COUNT 4.93 10^6/uL (4.00-5.40); WHITE BLOOD COUNT 10.2 10^3/uL (4.0-10.0)
[2022-10-24 05:55] LABS: CK-MB VALUE MASS 1.4 NG/ML (<3.6)
[2022-10-24 05:58] LABS: ALBUMIN 3.4 G/DL (3.2-5.2); ALKALINE PHOSPHATASE 65 U/L (46-116); ALT/SGPT < 9 U/L (7.0-40); AST/SGOT 10 U/L (<34); BILIRUBIN,DIRECT 0.2 MG/DL (<0.4); BILIRUBIN,TOTAL 0.6 MG/DL (0.3-1.2); BLOOD UREA NITROGEN 5 MG/DL (9-23); CARBON DIOXIDE LEVEL 26 MMOL/L (20-31); CHLORIDE LEVEL 110 MMOL/L (98-107); CPK CREATINE PHOSPHOKINASE 79 U/L (34-145); CREATININE FOR GFR 0.75 MG/DL (0.55-1.30); GLOMERULAR FILTRATION RATE > 60.0 (>39); GLUCOSE, FASTING 99 MG/DL (74-106); MB/CK RELATIVE INDEX 1.77 (< OR =4); POTASSIUM SERUM 4.1 MMOL/L (3.5-5.1); SODIUM LEVEL 143 MMOL/L (136-145); TOTAL PROTEIN 6.8 G/DL (5.7-8.2)
[2022-10-24 05:59] LABS: THYROID STIMULATING HORMONE 2.352 uIU/ML (0.55-4.78)
[2022-10-24 07:03] VITALS: O2SAT 96
[2022-10-24] MEDS: BUDESONIDE 180MCG INHALER (PULMICORT FLEXHALER) INH SCH ×2 (08:00→20:00)
[2022-10-24 08:01] LABS: ABG BASE EXCESS -2.2 (-2.0-2.0); ABG HCO3 22.5 MMOL/L (22.0-26.0); ABG O2 SATURATION 97.3 % (95.0-99.0); ABG PARTIAL PRESSURE CO2 38.8 mmHg (35.0-45.0); ABG PARTIAL PRESSURE O2 96.7 mmHg (75.0-100.0); ABG STANDARD HCO3 22.6 MMOL/L. (22.0-26.0); ABG TOTAL CO2 23.7 MMOL/L (23.0-31.0); ABG pH (ARTERIAL) 7.381 UNITS (7.350-7.450)
[2022-10-24] MEDS ORDERED: IPRA0.00 INH (08:17)
[2022-10-24] MEDS ORDERED: HOME MED LIST COMPLETE! XX SCH (08:20)
[2022-10-24] MEDS ORDERED: ALBUTEROL SULFATE 2.5MG/0.5ML INH NEB SOLN NEB PRN (08:25)
[2022-10-24 08:58] LABS: HEMATOCRIT 48.5 % (36.0-47.0); HEMOGLOBIN 15.8 g/dl (12.0-15.5); MEAN CORPUSCULAR HEMOGLOBIN 32.3 pg (27.0-33.0); MEAN CORPUSCULAR HGB CONC 32.6 g/dl (32.0-36.5); MEAN CORPUSCULAR VOLUME 99.2 fl (80.0-96.0); PLATELET COUNT, AUTOMATED 369 10^3/uL (150-450); RED BLOOD COUNT 4.89 10^6/uL (4.00-5.40); WHITE BLOOD COUNT 12.5 10^3/uL (4.0-10.0)
[2022-10-24] MEDS: ENOXAPARIN 30MG/0.3ML SYRINGE (J1650 PER 10MG) SC SCH (09:00)
[2022-10-24 09:25] LABS: ALBUMIN 3.5 G/DL (3.2-5.2); ALKALINE PHOSPHATASE 65 U/L (46-116); ALT/SGPT 10 U/L (7.0-40); AST/SGOT 10 U/L (<34); BILIRUBIN,TOTAL 0.5 MG/DL (0.3-1.2); BLOOD UREA NITROGEN 7 MG/DL (9-23); CALCIUM LEVEL 8.9 MG/DL (8.3-10.6); CARBON DIOXIDE LEVEL 26 MMOL/L (20-31); CHLORIDE LEVEL 111 MMOL/L (98-107); CREATININE FOR GFR 0.71 MG/DL (0.55-1.30); GLOMERULAR FILTRATION RATE > 60.0 (>39); GLUCOSE, FASTING 113 MG/DL (74-106); POTASSIUM SERUM 3.9 MMOL/L (3.5-5.1); SODIUM LEVEL 144 MMOL/L (136-145); TOTAL PROTEIN 6.8 G/DL (5.7-8.2)
[2022-10-24 09:33] LABS: INR 1.04; PROTHROMBIN TIME 13.3 SECONDS (12.5-14.5)
[2022-10-24 09:34] LABS: PARTIAL THROMBOPLASTIN TIME 27.6 SECONDS (24.8-34.2)
[2022-10-24] MEDS: LOSARTAN 50MG TABLET PO SCH (09:50)
[2022-10-24] MEDS: methylPREDNISolone 125MG 2ML VIAL IV SCH ×2 (09:50→20:50)
[2022-10-24] MEDS: SIMVASTATIN 20 MG TAB PO SCH (09:51)
[2022-10-24] MEDS: IPRATROPIUM 0.5MG/ALBUTEROL 2.5MG INH SOL UD 3ML (DUONEB) NEB SCH ×3 (11:22→20:13)
[2022-10-24] MEDS: NICOTINE 14 MG/24 HR TRANSDERMAL TD SCH (15:30)
[2022-10-24 16:30] VITALS: BP 138/70; TEMP 97.5; O2SAT 92
[2022-10-24 20:49] VITALS: BP 136/71; TEMP 97.9; O2SAT 90
[2022-10-25 05:50] VITALS: BP 154/89; TEMP 97.7; O2SAT 91
[2022-10-25] MEDS: IPRATROPIUM 0.5MG/ALBUTEROL 2.5MG INH SOL UD 3ML (DUONEB) NEB SCH (07:17)
[2022-10-25] MEDS: BUDESONIDE 180MCG INHALER (PULMICORT FLEXHALER) INH SCH (07:17)
[2022-10-25] MEDS ORDERED: ACETAMINOPHEN TAB 650MG DOSE (2X325MG) PO PRN (08:15)
[2022-10-25] MEDS ORDERED: IPRATROPIUM 0.5MG/ALBUTEROL 2.5MG INH SOL UD 3ML (DUONEB) NEB PRN (08:15)
[2022-10-25] MEDS ORDERED: SYMBICORT 160/4.5MCG INHALER 6GM INH SCH (08:15)
[2022-10-25] MEDS ORDERED: TIOTROPIUM INHALER/CAPSULE (SPIRIVA) INH SCH (08:15)
[2022-10-25] MEDS: ENOXAPARIN 30MG/0.3ML SYRINGE (J1650 PER 10MG) SC SCH (09:00)
[2022-10-25] MEDS ORDERED: predniSONE 20 MG TAB PO SCH (09:00)
[2022-10-25 09:13] VITALS: BP 136/78
[2022-10-25] MEDS: NICOTINE 14 MG/24 HR TRANSDERMAL TD SCH (09:15)
[2022-10-25] MEDS: SIMVASTATIN 20 MG TAB PO SCH (09:15)
[2022-10-25 09:16] VITALS: BP 136/78
[2022-10-25] MEDS: LOSARTAN 50MG TABLET PO SCH (09:16)
[2022-10-25] MEDS ORDERED: AZIT500T5 PO (10:39)
[2022-10-25] MEDS ORDERED: PRED10TA2 PO (10:39)
[2022-10-25] MEDS ORDERED: ALBUTEROL SULFATE 2.5MG/0.5ML INH NEB SOLN NEB SCH (12:00)
== END 2022-10-25 11:38 | disposition home health service (06) ==
LOC: M ED 04:59 → EDBD 04:59 → M ED INP 08:22 → ENRESERV 08:44 → M MSPAV 16:22
PROVIDERS: ADMIT Internal Medicine; ATTEND Internal Medicine Nephrology
DX: J44.1 Chronic obstructive pulmonary disease with (acute) exacerbation (principal); J96.21 Acute and chronic respiratory failure with hypoxia; I10 Essential (primary) hypertension; E78.5 Hyperlipidemia, unspecified; R01.1 Cardiac murmur, unspecified; I35.1 Nonrheumatic aortic (valve) insufficiency; I35.8 Other nonrheumatic aortic valve disorders; Z79.899 Other long term (current) drug therapy; Z79.51 Long term (current) use of inhaled steroids; Z99.81 Dependence on supplemental oxygen
CPT/HCPCS: 36415; 36600; 71045; 71046; 80048; 80053; 80076; 82550; 82553; 82803; 83880; 84443; 84484; 85025; 85027; 85610; 85730; 87040; 87486; 87581; 87633; 87798; 93005; 93041; 94640; 94660; 94760; 96374; 96376; 97161; 97530; 99285; J2930; J7512

== ENCOUNTER 2023-03-03 07:56 | Observation (INO) | payer OTHER, MEDICARE ==
[~2023-03-03] VITALS: Ht 160 cm; Wt 44.6 kg
[~2023-03-03 07:56] MED LIST changes: +CEFD1CAP9 PO; -CEFD300C41 PO; +IPRA0.00 INH
[2023-03-03] MEDS ORDERED: ACETAMINOPHEN 500 MG TAB PO ONE (08:15)
[2023-03-03 09:22] LABS: VENOUS BASE EXCESS -1.5 (-2.0-2.0); VENOUS HCO3 24.1 MMOL/L (23.0-27.0); VENOUS O2 SATURATION 81.9 % (60.0-80.0); VENOUS PARTIAL PRESSURE CO2 43.5 mmHg (38.0-50.0); VENOUS PARTIAL PRESSURE O2 44.6 mmHg (30.0-50.0); VENOUS PH 7.361 UNITS (7.330-7.430); VENOUS STANDARD HCO3 22.9 MMOL/L; VENOUS TOTAL CO2 25.4 MMOL/L (24.0-28.0)
[2023-03-03 09:29] LABS: BASO # 0.1 10^3/uL (0.0-0.2); BASO % 1.5 % (0.0-1.0); EOS % 0.2 % (0.0-3.0); HEMATOCRIT 42.6 % (36.0-47.0); HEMOGLOBIN 13.9 g/dl (12.0-15.5); LYMPH # 0.3 10^3/uL (1.5-5.0); LYMPH % 3.4 % (24.0-44.0); MEAN CORPUSCULAR HEMOGLOBIN 31.8 pg (27.0-33.0); MEAN CORPUSCULAR HGB CONC 32.6 g/dl (32.0-36.5); MEAN CORPUSCULAR VOLUME 97.5 fl (80.0-96.0); MONO # 0.7 10^3/uL (0.0-0.8); MONO % 9.1 % (2.0-8.0); NEUTROPHILS # 6.9 10^3/uL (1.5-8.5); NEUTROPHILS % 85.3 % (36.0-66.0); PLATELET COUNT, AUTOMATED 309 10^3/uL (150-450); RED BLOOD COUNT 4.37 10^6/uL (4.00-5.40); WHITE BLOOD COUNT 8.1 10^3/uL (4.0-10.0)
[2023-03-03 09:58] LABS: ALBUMIN 3.2 G/DL (3.2-5.2); ALKALINE PHOSPHATASE 61 U/L (46-116); ALT/SGPT < 9 U/L (7.0-40); AST/SGOT 10 U/L (<34); BILIRUBIN,DIRECT 0.1 MG/DL (<0.4); BILIRUBIN,TOTAL 0.2 MG/DL (0.3-1.2); BLOOD UREA NITROGEN 8 MG/DL (9-23); CALCIUM LEVEL 8.2 MG/DL (8.3-10.6); CARBON DIOXIDE LEVEL 23 MMOL/L (20-31); CHLORIDE LEVEL 112 MMOL/L (98-107); GLOMERULAR FILTRATION RATE > 60.0 (>39); GLUCOSE, FASTING 108 MG/DL (74-106); POTASSIUM SERUM 3.9 MMOL/L (3.5-5.1); SODIUM LEVEL 141 MMOL/L (136-145); TOTAL PROTEIN 6.4 G/DL (5.7-8.2)
[2023-03-03 16:20] VITALS: O2SAT 92
[2023-03-03] MEDS: IPRATROPIUM 0.5MG/ALBUTEROL 2.5MG INH SOL UD 3ML (DUONEB) NEB SCH ×3 (16:33→18:07)
[2023-03-03] MEDS ORDERED: MED REC IN PROGRESS XX SCH (16:40)
[2023-03-03] MEDS ORDERED: methylPREDNISolone 125MG 2ML VIAL IV ONE (17:00)
[2023-03-03] MEDS ORDERED: methylPREDNISolone 40MG 1ML VIAL IV ONE (17:00)
[2023-03-03] MEDS ORDERED: NS 1,000 ML IV ONE (17:00)
[2023-03-03] MEDS ORDERED: BUDE2SUS3 INH (17:20)
[2023-03-03] MEDS ORDERED: AZIT500T5 PO (17:20)
[2023-03-03] MEDS ORDERED: NICOLOZ PO (17:20)
[2023-03-03] MEDS ORDERED: FLUT1BLS8 INH (17:20)
[2023-03-03] MEDS ORDERED: HOME MED LIST COMPLETE! XX SCH (17:25)
[2023-03-03] MEDS ORDERED: NICOTINE 14 MG/24 HR TRANSDERMAL TD ONE (17:40)
[2023-03-03 18:28] LABS: MAGNESIUM LEVEL 1.7 MG/DL (1.8-2.4)
[2023-03-03 18:33] LABS: FREE T4 0.91 NG/DL (0.89-1.76)
[2023-03-03 18:38] LABS: PROCALCITONIN <0.04 ng/ml
[2023-03-03] MEDS: guaiFENesin ER TABLET 600 MG TAB PO SCH (20:55)
[2023-03-03] MEDS: LOSARTAN 50MG TABLET PO SCH (20:58)
[2023-03-03] MEDS: SIMVASTATIN 20 MG TAB PO SCH (20:59)
[2023-03-03] MEDS: DOXYCYCLINE HYCLATE 100MG TABLET PO SCH (20:59)
[2023-03-03] MEDS: LEVALBUTEROL 1.25MG 0.5ML CONCENTRATE NEB INH SCH (21:29)
[2023-03-03] MEDS: SYMBICORT 160/4.5MCG INHALER 6GM INH SCH (21:29)
[2023-03-03 22:07] VITALS: BP 123/74; TEMP 97.3; O2SAT 92
[2023-03-03] MEDS: ACETAMINOPHEN TAB 650MG DOSE (2X325MG) PO PRN (22:31)
[2023-03-04] MEDS: LEVALBUTEROL 1.25MG 0.5ML CONCENTRATE NEB INH SCH ×4 (01:30→19:33)
[2023-03-04] MEDS ORDERED: LEVALBUTEROL 1.25MG 0.5ML CONCENTRATE NEB INH PRN (05:05)
[2023-03-04 05:23] VITALS: BP 130/86; TEMP 98.1; O2SAT 93
[2023-03-04] MEDS: SYMBICORT 160/4.5MCG INHALER 6GM INH SCH (07:26)
[2023-03-04] MEDS: TIOTROPIUM INHALER/CAPSULE (SPIRIVA) INH SCH (07:26)
[2023-03-04 08:29] LABS: HEMATOCRIT 41.1 % (36.0-47.0); HEMOGLOBIN 13.6 g/dl (12.0-15.5); MEAN CORPUSCULAR HEMOGLOBIN 32.5 pg (27.0-33.0); MEAN CORPUSCULAR HGB CONC 33.1 g/dl (32.0-36.5); MEAN CORPUSCULAR VOLUME 98.3 fl (80.0-96.0); PLATELET COUNT, AUTOMATED 317 10^3/uL (150-450); RED BLOOD COUNT 4.18 10^6/uL (4.00-5.40); WHITE BLOOD COUNT 7.4 10^3/uL (4.0-10.0)
[2023-03-04 08:51] LABS: BLOOD UREA NITROGEN 12 MG/DL (9-23); CALCIUM LEVEL 8.2 MG/DL (8.3-10.6); CARBON DIOXIDE LEVEL 25 MMOL/L (20-31); CHLORIDE LEVEL 114 MMOL/L (98-107); CREATININE FOR GFR 0.57 MG/DL (0.55-1.30); GLOMERULAR FILTRATION RATE > 60.0 (>39); GLUCOSE, FASTING 95 MG/DL (74-106); POTASSIUM SERUM 3.7 MMOL/L (3.5-5.1); SODIUM LEVEL 144 MMOL/L (136-145)
[2023-03-04] MEDS ORDERED: predniSONE 20 MG TAB PO SCH (09:00)
[2023-03-04] MEDS: DOXYCYCLINE HYCLATE 100MG TABLET PO SCH ×2 (09:05→21:39)
[2023-03-04] MEDS: guaiFENesin ER TABLET 600 MG TAB PO SCH ×2 (09:05→21:40)
[2023-03-04] MEDS: LOSARTAN 50MG TABLET PO SCH ×2 (09:05→21:40)
[2023-03-04] MEDS: ENOXAPARIN 40MG/0.4ML SYRINGE (J1650 PER 10MG) SC SCH (09:08)
[2023-03-04 14:00] VITALS: BP 134/85; TEMP 100; O2SAT 93
[2023-03-04 14:04] VITALS: TEMP 98.9
[2023-03-04] MEDS: BUDESONIDE 0.25 MG/2 ML INHALATION SUSPENSION INH SCH (19:32)
[2023-03-04] MEDS: FORMOTEROL FUMARATE 20 MCG/2 ML INHALATION SOLUTION (PERFOROMIST) INH SCH (19:32)
[2023-03-04 21:00] VITALS: BP 136/82; TEMP 98.6; O2SAT 94
[2023-03-04] MEDS: methylPREDNISolone 40MG 1ML VIAL IV SCH (21:39)
[2023-03-04] MEDS: SIMVASTATIN 20 MG TAB PO SCH (21:40)
[2023-03-05] MEDS: LEVALBUTEROL 1.25MG 0.5ML CONCENTRATE NEB INH SCH ×2 (01:31→07:20)
[2023-03-05 05:29] VITALS: BP 158/90; TEMP 99.1; O2SAT 91; O2SAT 94
[2023-03-05 06:10] LABS: BASO % 0.1 % (0.0-1.0); HEMATOCRIT 41.2 % (36.0-47.0); HEMOGLOBIN 13.8 g/dl (12.0-15.5); LYMPH # 0.8 10^3/uL (1.5-5.0); LYMPH % 10.1 % (24.0-44.0); MEAN CORPUSCULAR HEMOGLOBIN 32.8 pg (27.0-33.0); MEAN CORPUSCULAR HGB CONC 33.5 g/dl (32.0-36.5); MEAN CORPUSCULAR VOLUME 97.9 fl (80.0-96.0); MONO # 0.6 10^3/uL (0.0-0.8); MONO % 8.2 % (2.0-8.0); NEUTROPHILS # 6.2 10^3/uL (1.5-8.5); NEUTROPHILS % 81.3 % (36.0-66.0); PLATELET COUNT, AUTOMATED 332 10^3/uL (150-450); RED BLOOD COUNT 4.21 10^6/uL (4.00-5.40); WHITE BLOOD COUNT 7.7 10^3/uL (4.0-10.0)
[2023-03-05 06:39] LABS: BLOOD UREA NITROGEN 14 MG/DL (9-23); CALCIUM LEVEL 8.4 MG/DL (8.3-10.6); CARBON DIOXIDE LEVEL 28 MMOL/L (20-31); CHLORIDE LEVEL 112 MMOL/L (98-107); CREATININE FOR GFR 0.59 MG/DL (0.55-1.30); GLOMERULAR FILTRATION RATE > 60.0 (>39); GLUCOSE, FASTING 103 MG/DL (74-106); POTASSIUM SERUM 4.5 MMOL/L (3.5-5.1); SODIUM LEVEL 143 MMOL/L (136-145)
[2023-03-05] MEDS: FORMOTEROL FUMARATE 20 MCG/2 ML INHALATION SOLUTION (PERFOROMIST) INH SCH (07:20)
[2023-03-05] MEDS: BUDESONIDE 0.25 MG/2 ML INHALATION SUSPENSION INH SCH (07:20)
[2023-03-05] MEDS: TIOTROPIUM INHALER/CAPSULE (SPIRIVA) INH SCH (07:21)
[2023-03-05] MEDS: methylPREDNISolone 40MG 1ML VIAL IV SCH (08:00)
[2023-03-05 08:01] VITALS: BP 154/82
[2023-03-05] MEDS: DOXYCYCLINE HYCLATE 100MG TABLET PO SCH (08:01)
[2023-03-05] MEDS: guaiFENesin ER TABLET 600 MG TAB PO SCH (08:01)
[2023-03-05] MEDS: LOSARTAN 50MG TABLET PO SCH (08:01)
[2023-03-05] MEDS: ENOXAPARIN 40MG/0.4ML SYRINGE (J1650 PER 10MG) SC SCH (08:01)
[2023-03-05] MEDS: ACETAMINOPHEN TAB 650MG DOSE (2X325MG) PO PRN (08:01)
[2023-03-05] MEDS ORDERED: PRED10TA2 PO (11:59)
[2023-03-05] MEDS ORDERED: DOXY100T PO (11:59)
[2023-03-05] MEDS ORDERED: MUCI600T31 PO (11:59)
[2023-03-05] MEDS ORDERED: IPRA0.00 INH ×2 (12:02→13:16)
[2023-03-05] MEDS ORDERED: PRED20TA PO (12:02)
== END 2023-03-05 13:50 | disposition home health service (06) ==
LOC: EDBD 07:56 → M ED 07:56 → M ED INP 07:57 → M MSPAV 22:07
PROVIDERS: ADMIT Internal Medicine; ATTEND Internal Medicine
DX: J44.1 Chronic obstructive pulmonary disease with (acute) exacerbation (principal); J96.11 Chronic respiratory failure with hypoxia; R65.10 Systemic inflammatory response syndrome (SIRS) of non-infectious origin without acute organ dysfunction; M79.604 Pain in right leg; M79.605 Pain in left leg; R50.9 Fever, unspecified; R00.0 Tachycardia, unspecified; I10 Essential (primary) hypertension; E78.5 Hyperlipidemia, unspecified; I35.8 Other nonrheumatic aortic valve disorders; F17.210 Nicotine dependence, cigarettes, uncomplicated; Z99.81 Dependence on supplemental oxygen; Z79.899 Other long term (current) drug therapy; Z79.2 Long term (current) use of antibiotics; Z79.51 Long term (current) use of inhaled steroids; Z82.49 Family history of ischemic heart disease and other diseases of the circulatory system; Z81.1 Family history of alcohol abuse and dependence; Z80.1 Family history of malignant neoplasm of trachea, bronchus and lung; Z82.0 Family history of epilepsy and other diseases of the nervous system
CPT/HCPCS: 36415; 71045; 71250; 80048; 80076; 81001; 82803; 83605; 83735; 83880; 84145; 84439; 84443; 85025; 85027; 86140; 87040; 87486; 87581; 87633; 87798; 93005; 93041; 94640; 94760; 96361; 96372; 96374; 96376; 99285; J1650; J2920; J2930; J7512; J7606

== ENCOUNTER 2023-03-23 11:20 | Day surgery (SDC) | payer OTHER, MEDICARE ==
[~2023-03-23] VITALS: Ht 149.9 cm; Wt 42.2 kg
[~2023-03-23 11:20] MED LIST changes: +BUDE2SUS3 INH; +DOXY100T PO; +FLUT1BLS8 INH; +LIDOCAINE 2% W/EPINEPHRINE 20ML VIAL **PRES FREE As Ordered ONE; +LIDOCAINE 3.5 % 1ML OPHTH TOPICAL GEL OU ONE; +MUCI600T31 PO; +NICOLOZ PO; +TOBRADEX OPHTH OINT 3.5 GM As Ordered ONE
[2023-03-23] MEDS ORDERED: fentaNYL 100 MCG/2 ML INJECTION As Ordered ONE (11:55)
[2023-03-23] MEDS ORDERED: MIDAZOLAM INJ 2MG/2ML VIAL As Ordered ONE (11:55)
[2023-03-23 13:14] VITALS: BP 162/83; TEMP 98.1; O2SAT 95
== END 2023-03-23 13:42 | disposition home or self-care (01) ==
LOC: M SDC 11:20
PROVIDERS: ATTEND Ophthalmology
DX: H02.834 Dermatochalasis of left upper eyelid (principal); H02.831 Dermatochalasis of right upper eyelid; I10 Essential (primary) hypertension; J44.9 Chronic obstructive pulmonary disease, unspecified; I71.9 Aortic aneurysm of unspecified site, without rupture; Z99.81 Dependence on supplemental oxygen; Z79.899 Other long term (current) drug therapy; E78.00 Pure hypercholesterolemia, unspecified; F17.200 Nicotine dependence, unspecified, uncomplicated
CPT/HCPCS: 15823; 88302; J2250; J3010

== ENCOUNTER → 2023-05-11 | Outpatient (CLI) | payer OTHER, MEDICARE ==
[~2023-05-11] MED LIST changes: -LIDOCAINE 2% W/EPINEPHRINE 20ML VIAL **PRES FREE As Ordered ONE; -LIDOCAINE 3.5 % 1ML OPHTH TOPICAL GEL OU ONE; -TOBRADEX OPHTH OINT 3.5 GM As Ordered ONE
== END ==
LOC: M RAD 12:26
PROVIDERS: ATTEND Physician Assistant Medical
DX: I73.9 Peripheral vascular disease, unspecified (principal)

== ENCOUNTER → 2023-11-29 | Outpatient (CLI) | payer OTHER, MEDICARE ==
[~2023-11-29] MED LIST changes: -NICOLOZ PO; +NICOLOZ4 PO
== END ==
LOC: M WUC 13:45
PROVIDERS: ATTEND Nurse Practitioner Family
DX: J44.1 Chronic obstructive pulmonary disease with (acute) exacerbation (principal); R05.9 Cough, unspecified

== ENCOUNTER → 2023-12-18 | Outpatient (CLI) | payer OTHER, MEDICARE | LOC: M WUC 08:48 | PROVIDERS: ATTEND Registered Nurse | DX: M25.512 Pain in left shoulder (principal) ==

== ENCOUNTER → 2024-02-02 | Outpatient (CLI) | payer OTHER, MEDICARE ==
[~2024-02-02] MED LIST changes: -LEVO750T14 PO; +LEVO75TAB PO
== END ==
LOC: M RAD 15:14
PROVIDERS: ATTEND Surgery
DX: I73.9 Peripheral vascular disease, unspecified (principal); Z95.828 Presence of other vascular implants and grafts

== ENCOUNTER → 2024-03-05 | Outpatient (CLI) | payer OTHER, MEDICARE | LOC: M RAD 10:43 | PROVIDERS: ATTEND Physician Assistant Medical | DX: Z87.891 Personal history of nicotine dependence (principal) ==

== ENCOUNTER → 2024-07-18 | Outpatient (CLI) | payer OTHER, MEDICARE ==
[~2024-07-18] MED LIST changes: +DOXY-442 PO; -DOXY100C82 PO
== END ==
LOC: M RAD 10:14
PROVIDERS: ATTEND Surgery
DX: I73.9 Peripheral vascular disease, unspecified (principal); Z95.820 Peripheral vascular angioplasty status with implants and grafts

== ENCOUNTER → 2024-10-21 | Outpatient (CLI) | payer OTHER, MEDICARE ==
[~2024-10-21] MED LIST changes: +ASPI81TA26 PO; +AZIT-12 PO; +BENZ200C70 PO; +ROSU10TA61 PO; +TUSS15SY2 PO
[2024-10-21 12:55] LABS: BASO # 0.2 10^3/uL (0.0-0.2); BASO % 2.1 % (0.0-1.0); EOS # 0.3 10^3/uL (0.0-0.5); EOS % 3.1 % (0.0-3.0); LYMPH # 2.6 10^3/uL (1.5-5.0); LYMPH % 27.4 % (24.0-44.0); MONO # 0.9 10^3/uL (0.0-0.8); MONO % 9.9 % (2.0-8.0); NEUTROPHILS # 5.4 10^3/uL (1.5-8.5); NEUTROPHILS % 57.2 % (36.0-66.0); PLATELET COUNT, AUTOMATED 356 10^3/uL (150-450)
[2024-10-21 13:04] LABS: TOTAL 25(OH) VITAMIN D 42.7 NG/ML (20.0-100.0)
[2024-10-21 13:12] LABS: ALT/SGPT 13.0 U/L (7.0-40); AST/SGOT 19.0 U/L (<34); CALCIUM LEVEL 9.4 MG/DL (8.3-10.6); CARBON DIOXIDE LEVEL 24.0 MMOL/L (20-31); CHLORIDE LEVEL 112.0 MMOL/L (98-107); CHOLESTEROL LEVEL 130.0 MG/DL (<200); CHOLESTEROL RISK RATIO 2.83 (<5); CREATININE FOR GFR 0.72 MG/DL (0.55-1.30); GLOMERULAR FILTRATION RATE 87.1 (>39); LDL CHOLESTEROL 62.4 MG/DL (<100); NON-HDL-C 84.2 MG/DL; POTASSIUM SERUM 4.2 MMOL/L (3.5-5.1); SODIUM LEVEL 145.0 MMOL/L (136-145); TRIGLYCERIDES LEVEL 109.0 MG/DL (<150)
== END ==
LOC: M WUC 09:29
PROVIDERS: ATTEND Physician Assistant Medical
DX: Z13.6 Encounter for screening for cardiovascular disorders (principal); E78.00 Pure hypercholesterolemia, unspecified; E55.9 Vitamin D deficiency, unspecified

== ENCOUNTER → 2024-10-30 | Outpatient (CLI) | payer OTHER, MEDICARE | LOC: M WUC 10:11 | PROVIDERS: ATTEND Physician Assistant | DX: M79.671 Pain in right foot (principal) ==

== ENCOUNTER → 2024-12-10 | Outpatient (CLI) | payer MEDICARE, OTHER | LOC: M RAD 11:40 | PROVIDERS: ATTEND Surgery | DX: I73.9 Peripheral vascular disease, unspecified (principal) ==

== ENCOUNTER → 2025-02-07 | Outpatient (CLI) | payer OTHER ==
[~2025-02-07] MED LIST changes: -ROSU10TA61 PO; +ROSU10TA90 PO
== END ==
LOC: M WUC 10:19
PROVIDERS: ATTEND Physician Assistant
DX: M25.571 Pain in right ankle and joints of right foot (principal)

== ENCOUNTER 2025-02-15 01:41 | Emergency (ER) | payer MEDICARE, OTHER ==
[~2025-02-15] VITALS: Ht 149.9 cm; Wt 43.0 kg
[2025-02-15 01:51] VITALS: TEMP 97
[2025-02-15] MEDS: GABAPENTIN 300 MG CAP PO ONE (03:56)
[2025-02-15] MEDS ORDERED: NEUR300C PO (06:15)
[2025-02-15 06:45] VITALS: BP 125/62; O2SAT 94
== END 2025-02-15 07:08 | disposition home or self-care (01) ==
LOC: M ED 01:41
DX: G60.9 Hereditary and idiopathic neuropathy, unspecified (principal); J44.9 Chronic obstructive pulmonary disease, unspecified; E78.5 Hyperlipidemia, unspecified; F17.210 Nicotine dependence, cigarettes, uncomplicated; Z79.51 Long term (current) use of inhaled steroids; Z79.1 Long term (current) use of non-steroidal anti-inflammatories (NSAID); Z79.899 Other long term (current) drug therapy; Z79.52 Long term (current) use of systemic steroids

== ENCOUNTER 2025-02-22 12:09 | Emergency (ER) | payer OTHER ==
[~2025-02-22 12:09] MED LIST changes: +NEUR300C PO
[2025-02-22 13:20] LABS: BASO # 0.1 10^3/uL (0.0-0.2); BASO % 1.2 % (0.0-1.0); EOS # 0.3 10^3/uL (0.0-0.5); EOS % 2.4 % (0.0-3.0); LYMPH # 2.7 10^3/uL (1.5-5.0); LYMPH % 26.0 % (24.0-44.0); MONO # 0.9 10^3/uL (0.0-0.8); MONO % 8.7 % (2.0-8.0); NEUTROPHILS # 6.3 10^3/uL (1.5-8.5); NEUTROPHILS % 61.4 % (36.0-66.0); PLATELET COUNT, AUTOMATED 363 10^3/uL (150-450)
[2025-02-22] MEDS ORDERED: ISOVUE-370 76% 100 ML VIAL As Ordered ONE (13:21)
[2025-02-22 13:45] LABS: INR 0.87
[2025-02-22] MEDS: MORPHINE 2 MG/ML 1 ML VIAL IV ONE (15:18)
[2025-02-22 18:15] VITALS: BP 149/66; TEMP 97; O2SAT 94
== END 2025-02-22 18:35 | disposition short-term general hospital (02) ==
LOC: M ED 12:09
DX: I74.5 Embolism and thrombosis of iliac artery (principal); I10 Essential (primary) hypertension; E78.5 Hyperlipidemia, unspecified; Z79.51 Long term (current) use of inhaled steroids; Z79.1 Long term (current) use of non-steroidal anti-inflammatories (NSAID); Z79.899 Other long term (current) drug therapy
CPT/HCPCS: 75635; 80047; 85025; 85610; 85652; 85730; 86140; 96374; 99285; Q9967